=== PATIENT | male | born 1945 | race Caucasian/White ===

== ENCOUNTER 2017-09-15 19:00 | Inpatient (IN) | payer MEDICARE, OTHER ==
--- NOTE | 2017-09-15 20:11 | EDM.PDOC ---
ED HPI GENERAL MEDICAL PROBLEM - General Stated Complaint: SHORT OF BREATH Time Seen by Provider: 09/15/17 19:00 Source of Information: Reports: Patient History Limitations: Reports: Physical Impairment - History of Present Illness INITIAL COMMENTS - FREE TEXT/NARRATIVE: 72 y.o.w.m smoker, came to the ed by EMS due to SOB. Pt was seen in another hospital for a UTI. Pt is incontinent due to a "bladder issue" in the past. Pt is a poor historian. No N/V/D. No F/C BP 103/58 Pulse ox 94 on 3 liters O2 Pulse 76 Temp 36.6 Onset: Unknown/Unsure Onset Date: 09/14/17 Onset Time: 09:00 Duration: Day(s):, Getting Worse Location: Reports: Chest, Generalized Severity: Moderate Improves with: Reports: Rest Worsens with: Reports: Movement Context: Reports: Other (SOB, former smoker) Associated Symptoms: Reports: Shortness of Breath, Weakness - Related Data Allergies Allergy/AdvReac Type Severity Reaction Status Date / Time No Known Allergies Allergy Verified 09/15/17 20:12 Home Meds: Home Meds Tamsulosin [Flomax] 0.4 mg PO PCBRK #30 cap.er 11/25/13 [Rx] Multivitamin [Daily Vitamin] 1 tab PO DAILY 10/21/14 [History] Omeprazole 40 mg PO DAILY 10/21/14 [History] Ferrous Gluconate 324 mg PO DAILY 11/22/14 [History] Oxybutynin Chloride [Ditropan Xl] 15 mg PO DAILY 12/25/14 [History] Mirtazapine 45 mg PO BEDTIME 02/03/16 [History] Sertraline [Zoloft] 150 mg PO DAILY 30 Days tab 03/02/16 [Rx] Albuterol/Ipratropium [DuoNeb 3.0-0.5 MG/3 ML] 3 ml NEB Q4H PRN #120 neb [Rx] Acetaminophen 1,000 mg PO TID PRN 09/15/17 [History] Apixaban [Eliquis] 2.5 mg PO BID 09/15/17 [History] Aspirin 81 mg PO DAILY 09/15/17 [History] Dicyclomine [Bentyl] 10 mg PO QIDACANDBED 09/15/17 [History] Loratadine 10 mg PO DAILY 09/15/17 [History] Metoprolol Tartrate [Lopressor] 12.5 mg PO BID 09/15/17 [History] Mupirocin Oint [Bactroban Oint] 1 applic TOP TID 09/15/17 [History] Sennosides/Docusate Sodium [Sennosides-Docusate Sodium] 1 tab PO BID 09/15/17 [ History] Triamcinolone Acetonide [Triamcinolone Acetonide 0.1% Oint] 1 applic TOP DAILY 09/15/17 [History] atorvaSTATin [Lipitor] 20 mg PO BEDTIME 09/15/17 [History] Levothyroxine 175 mcg PO DAILY 09/16/17 [History] Sodium Chloride 1 gm PO TID 09/16/17 [History] Past Medical History HEENT History: Reports: Impaired Vision Other HEENT History: EYEGLASSES, wears full dentures Respiratory History: Reports: Pneumonia, Recurrent, Other (See Below) Other Respiratory History: long time smoker Genitourinary History: Reports: Urinary Incontinence Other Musculoskeletal History: RODS PLACED IN BACK. Psychiatric History: Reports: Depression Endocrine/Metabolic History: Reports: Hypothyroidism Oncologic (Cancer) History: Reports: Bladder Dermatologic History: Reports: Other (See Below) Other Dermatologic History: MULTIPLE OLD HEALED SCRATCH [place] - Past Surgical History Musculoskeletal Surgical History: Reports: Hip Replacement, Knee Replacement Social & Family History - Family History OBGYN: Reports: Endocrine/Metabolic: Reports: Diabetes, type II Other Dermatologic Family History: SISTER OF MVC Oncologic: Reports: Other (See Below) Other Oncologic Family History: BOTH MOTHER, FATHER AND BROTHER OF CA. PT UNSURE OF KIND - Tobacco Use Smoking Status *Q: Current Every Day Smoker Years of Tobacco use: 55 Packs/Tins Daily: 0.2 Used Tobacco, but Quit: No Month Tobacco Last Used: UNKNOWN Second Hand Smoke Exposure: No - Alcohol Use Days Per Week of Alcohol Use: 0 - Recreational Drug Use Recreational Drug Use: No Drug Use in Last 12 Months: No ED ROS GENERAL - Review of Systems Review Of Systems: See Below Constitutional: Reports: Weakness, Decreased Appetite, Weight Loss HEENT: Reports: No Symptoms Respiratory: Reports: No Symptoms Cardiovascular: Reports: Dyspnea on Exertion, Lightheadedness Endocrine: Reports: No Symptoms GI/Abdominal: Reports: No Symptoms : Reports: No Symptoms Musculoskeletal: Reports: No Symptoms Skin: Reports: Cyanosis Neurological: Reports: No Symptoms, Difficulty Walking (because of weakness), Weakness Psychiatric: Reports: No Symptoms Hematologic/Lymphatic: Reports: No Symptoms Immunologic: Reports: No Symptoms ED EXAM, GENERAL - Physical Exam Exam: See Below Exam Limited By: Physical Impairment (weak) General Appearance: Alert, Moderate Distress, Cachetic Eye Exam: Bilateral Eye: Normal Inspection Ears: Normal External Exam Ear Exam: Bilateral Ear: Auricle Normal Nose: Normal Inspection, Normal Mucosa, No Blood Throat/Mouth: Perioral Cyanosis Head: Atraumatic, Normocephalic Neck: Normal Inspection, Supple, Non-Tender, Full Range of Motion Respiratory/Chest: Respiratory Distress, Decreased Breath Sounds, Crackles ( left lung) Cardiovascular: Normal Peripheral Pulses, Regular Rate, Rhythm, No Edema Peripheral Pulses: 1+: Femoral (L), Femoral (R) GI/Abdominal: Normal Bowel Sounds, Soft, Non-Tender, No Organomegaly (Male) Exam: Deferred Rectal (Males) Exam: Deferred Back Exam: Normal Inspection, Full Range of Motion Extremities: Normal Range of Motion, Other (chronic lymphedema r leg) Neurological: Alert, Oriented, CN II-XII Intact, Normal Cognition, Other (too week to ambulate.) Psychiatric: Normal Affect, Normal Mood Skin Exam: Warm, Dry, Intact, Cyanosis Lymphatic: No Adenopathy EKG INTERPRETATION EKG Date: 09/15/17 Time: 19:20 Rhythm: NSR Rate (Beats/Min): 66 [place]: Normal P-Wave: Present QRS: Normal ST-T: Normal QT: Normal Comparison: NA - No Prior EKG Course - Vital Signs Text/Narrative:: 72 y.o.w.m smoker, came to the ed by EMS due to SOB. Pt was seen in another hospital for a UTI. Pt is incontinent due to a "bladder issue" in the past. Pt is a poor historian. No N/V/D. No F/C BP 103/58 Pulse ox 94 on 3 liters O2 Pulse 76 Temp 36.6 PE: cachectic 72 y.o.w.m with cyanotic lips, distant breath sounds. Imaging: CXR: COPD, no infiltrate, no CHF as per RAD Labs: BNP 2319 WBC 6.6 HGB 9.6 Inr 1.22 (not on coumadine) VBG: pH 7.047 pCO2 39 pO2 23 Biocarb 25 Impression: COPD exacerbation, elevated BNP, UTI Tx: Duoneb, Solumedrol, O2 by NC, Abx not given because the UA returned later. Reexam: improved Consultation: : Accepted for admission to med/surg Plan: Admit to M/S Last Recorded V/S: Last Vital Signs Temp 36.6 C 09/16/17 12:00 Pulse 87 09/16/17 16:27 Resp 20 09/16/17 12:00 BP 124/55 L 09/16/17 12:00 Pulse Ox 96 09/16/17 16:27 - Orders/Labs/Meds Orders: Active Orders 24 hr Category Date Time Status Chest 1V Frontal [CR] Stat Exams 09/15/17 19:18 Taken EKG 12 Lead [EK] Routine Ther 09/15/17 19:19 Ordered Medication Orders Acetaminophen (Tylenol Extra Strength) 1,000 mg PO QID PRN PRN Reason: Pain Albuterol/Ipratropium (Duoneb 3.0-0.5 Mg/3 Ml) 3 ml NEB QIDRT [facility] Last Admin: 09/16/17 16:22 Dose: 3 ml Admin: 09/16/17 10:39 Dose: 3 ml Admin: 09/16/17 09:56 Dose: Apixaban (Eliquis) 2.5 mg PO BID [facility] Last Admin: 09/16/17 10:53 Dose: 2.5 mg Aspirin (Aspirin) 81 mg PO DAILY [facility] Last Admin: 09/16/17 09:52 Dose: 81 mg Atorvastatin Calcium (Lipitor) 20 mg PO BEDTIME [facility] Levofloxacin/Dextrose 500 mg/ (Premix) 100 mls @ 100 mls/hr IV Q24H [facility] Last Admin: 09/16/17 09:33 Dose: 100 mls/hr Levothyroxine Sodium (Levothyroxine) 175 mcg PO DAILY@0600 [facility] Loratadine (Claritin) 10 mg PO DAILY [facility] Last Admin: 09/16/17 09:55 Dose: 10 mg Megestrol Acetate (Megace 40 Mg/Ml Susp) 400 mg PO DAILY [facility] Last Admin: 09/16/17 11:01 Dose: 400 mg Methylprednisolone Sodium Succinate (Solu-Medrol) 125 mg IVPUSH Q8H [facility] Last Admin: 09/16/17 16:24 Dose: 125 mg Admin: 09/16/17 09:34 Dose: 125 mg Mirtazapine (Remeron) 45 mg PO BEDTIME [facility] Multivitamins/Minerals/Vitamin C (Childrens Chewable Vitamin) 1 tab PO DAILY [facility] Last Admin: 09/16/17 10:51 Dose: 1 tab Oxybutynin Chloride (Oxybutynin Er) 15 mg PO DAILY [facility] Last Admin: 09/16/17 09:53 Dose: 15 mg Pantoprazole Sodium (Protonix) 40 mg PO DAILY@0600 [facility] Last Admin: 09/16/17 09:54 Dose: 40 mg Senna/Docusate Sodium (Senna Plus) 1 tab PO BID [facility] Last Admin: 09/16/17 10:52 Dose: 1 tab Sertraline HCl (Zoloft) 150 mg PO DAILY [facility] Last Admin: 09/16/17 09:55 Dose: 150 mg Sodium Chloride (Saline Flush) 10 ml FLUSH ASDIRECTED PRN PRN Reason: Keep Vein Open Last Admin: 09/16/17 17:05 Dose: 10 ml Tamsulosin HCl (Flomax) 0.4 mg PO PCBRK [facility] Last Admin: 09/16/17 09:52 Dose: 0.4 mg Labs: Laboratory Tests 09/15/17 09/15/17 09/15/17 Range/Units 19:30 19:30 19:30 WBC 6.6 (4.5-12.0) X10-3/uL RBC 3.33 L (4.30-5.75) x10(6)uL Hgb 9.6 L (11.5-15.5) g/dL Hct 28.4 L (30.0-51.3) % MCV 85.4 (80-96) fL MCH 28.8 (27.7-33.6) pg MCHC 33.7 (32.2-35.4) g/dL RDW 13.6 (11.5-15.5) % Plt Count 245 (125-369) X10(3)uL MPV 7.8 (7.4-10.4) fL Neut % (Auto) 79.4 (46-82) % Lymph % (Auto) 5.8 L (13-37) % [place] % (Auto) 7.0 (4-12) % Eos % (Auto) 7 H (1.0-5.0) % Baso % (Auto) 0 (0-2) % Neut # (Auto) 5.2 (1.6-8.3) # Lymph # (Auto) 0.4 L (0.6-5.0) # [place] # (Auto) 0.5 (0.0-1.3) # Eos # (Auto) 0.5 (0.0-0.8) # Baso # (Auto) 0.0 (0.0-0.2) # PT 12.3 H (8.7-11.1) INR 1.22 H (0.89-1.13) VBG pH (7.32-7.42) VBG pCO2 VBG pO2 VBG HCO3 mmol/L VBG O2 Saturation VBG Base Excess O2 Delivery Device Sodium 134 L (135-145) mmol/L Potassium 3.9 (3.5-5.3) mmol/L Chloride 103 D (100-110) mmol/L Carbon Dioxide 25 (23-29) mmol/L BUN 15 (8-23) mg/dL Creatinine 1.0 (0.6-1.3) mg/dL Est Cr Clr Drug Dosing TNP Estimated GFR (MDRD) > 60 (>60) BUN/Creatinine Ratio 15.0 (9-20) Glucose 91 (80-116) mg/dL Lactic Acid (0.5-2.2) mmol/L Calcium 8.2 L (8.6-10.2) mg/dL Creatine Kinase (60-160) IU/L Troponin I (0.02-0.06) NG/ML NT-Pro-B Natriuret Pep (5-125) pg/mL 09/15/17 09/15/17 09/15/17 Range/Units 19:30 19:30 19:30 WBC (4.5-12.0) X10-3/uL RBC (4.30-5.75) x10(6)uL Hgb (11.5-15.5) g/dL Hct (30.0-51.3) % MCV (80-96) fL MCH (27.7-33.6) pg MCHC (32.2-35.4) g/dL RDW (11.5-15.5) % Plt Count (125-369) X10(3)uL MPV (7.4-10.4) fL Neut % (Auto) (46-82) % Lymph % (Auto) (13-37) % [place] % (Auto) (4-12) % Eos % (Auto) (1.0-5.0) % Baso % (Auto) (0-2) % Neut # (Auto) (1.6-8.3) # Lymph # (Auto) (0.6-5.0) # [place] # (Auto) (0.0-1.3) # Eos # (Auto) (0.0-0.8) # Baso # (Auto) (0.0-0.2) # PT (8.7-11.1) INR (0.89-1.13) VBG pH (7.32-7.42) VBG pCO2 VBG pO2 VBG HCO3 mmol/L VBG O2 Saturation VBG Base Excess O2 Delivery Device Sodium (135-145) mmol/L Potassium (3.5-5.3) mmol/L Chloride (100-110) mmol/L Carbon Dioxide (23-29) mmol/L BUN (8-23) mg/dL Creatinine (0.6-1.3) mg/dL Est Cr Clr Drug Dosing Estimated GFR (MDRD) (>60) BUN/Creatinine Ratio (9-20) Glucose (80-116) mg/dL Lactic Acid (0.5-2.2) mmol/L Calcium (8.6-10.2) mg/dL Creatine Kinase 45 L (60-160) IU/L Troponin I 0.02 (0.02-0.06) NG/ML NT-Pro-B Natriuret Pep 2318 H (5-125) pg/mL 09/15/17 09/15/17 Range/Units 20:15 20:15 WBC (4.5-12.0) X10-3/uL RBC (4.30-5.75) x10(6)uL Hgb (11.5-15.5) g/dL Hct (30.0-51.3) % MCV (80-96) fL MCH (27.7-33.6) pg MCHC (32.2-35.4) g/dL RDW (11.5-15.5) % Plt Count (125-369) X10(3)uL MPV (7.4-10.4) fL Neut % (Auto) (46-82) % Lymph % (Auto) (13-37) % [place] % (Auto) (4-12) % Eos % (Auto) (1.0-5.0) % Baso % (Auto) (0-2) % Neut # (Auto) (1.6-8.3) # Lymph # (Auto) (0.6-5.0) # [place] # (Auto) (0.0-1.3) # Eos # (Auto) (0.0-0.8) # Baso # (Auto) (0.0-0.2) # PT (8.7-11.1) INR (0.89-1.13) VBG pH 7.407 (7.32-7.42) VBG pCO2 39.2 VBG pO2 23 VBG HCO3 25 mmol/L VBG O2 Saturation 40 VBG Base Excess 0.0 O2 Delivery Device Room air Sodium (135-145) mmol/L Potassium (3.5-5.3) mmol/L Chloride (100-110) mmol/L Carbon Dioxide (23-29) mmol/L BUN (8-23) mg/dL Creatinine (0.6-1.3) mg/dL Est Cr Clr Drug Dosing Estimated GFR (MDRD) (>60) BUN/Creatinine Ratio (9-20) Glucose (80-116) mg/dL Lactic Acid 0.6 (0.5-2.2) mmol/L Calcium (8.6-10.2) mg/dL Creatine Kinase (60-160) IU/L Troponin I (0.02-0.06) NG/ML NT-Pro-B Natriuret Pep (5-125) pg/mL Meds: Medications Generic Name Dose Route Start Last Admin Trade Name Freq PRN Reason Stop Dose Admin Acetaminophen 1,000 mg 09/16/17 09:08 Tylenol Extra Strength PO QID PRN Pain Albuterol/Ipratropium 3 ml 09/16/17 08:15 09/16/17 16:22 Duoneb 3.0-0.5 Mg/3 Ml NEB 3 ml QIDRT [facility] Administration Apixaban 2.5 mg 09/16/17 10:30 09/16/17 10:53 Eliquis PO 2.5 mg BID [facility] Administration Aspirin 81 mg 09/16/17 09:00 09/16/17 09:52 Aspirin PO 81 mg DAILY [facility] Administration Atorvastatin Calcium 20 mg 09/16/17 21:00 Lipitor PO BEDTIME [facility] Levofloxacin/Dextrose 500 mg/ 100 mls @ 100 mls/hr 09/16/17 09:00 09/16/17 09 :33 Premix IV 100 mls/hr Q24H [facility] Administration Levothyroxine Sodium 175 mcg 09/17/17 06:00 Levothyroxine PO DAILY@0600 [facility] Loratadine 10 mg 09/16/17 09:30 09/16/17 09:55 Claritin PO 10 mg DAILY [facility] Administration Megestrol Acetate 400 mg 09/16/17 10:00 09/16/17 11:01 Megace 40 Mg/Ml Susp PO 400 mg DAILY [facility] Administration Methylprednisolone Sodium Succinate 125 mg 09/16/17 08:30 09/16/17 16:24 Solu-Medrol IVPUSH 125 mg Q8H [facility] Administration Mirtazapine 45 mg 09/16/17 21:00 Remeron PO BEDTIME [facility] Multivitamins/Minerals/Vitamin C 1 tab 09/16/17 09:00 09/16/17 10:51 Childrens Chewable Vitamin PO 1 tab DAILY [facility] Administration Oxybutynin Chloride 15 mg 09/16/17 09:00 09/16/17 09:53 Oxybutynin Er PO 15 mg DAILY [facility] Administration Pantoprazole Sodium 40 mg 09/16/17 09:00 09/16/17 09:54 Protonix PO 40 mg DAILY@0600 [facility] Administration Senna/Docusate Sodium 1 tab 09/16/17 09:00 09/16/17 10:52 Senna Plus PO 1 tab BID [facility] Administration Sertraline HCl 150 mg 09/16/17 09:00 09/16/17 09:55 Zoloft PO 150 mg DAILY [facility] Administration Sodium Chloride 10 ml 09/15/17 21:24 09/16/17 17:05 Saline Flush FLUSH 10 ml ASDIRECTED PRN Administration Keep Vein Open Tamsulosin HCl 0.4 mg 09/16/17 09:00 09/16/17 09:52 Flomax PO 0.4 mg PCBRK [facility] Administration Discontinued Medications Generic Name Dose Route Start Last Admin Trade Name Osmel PRN Reason Stop Dose Admin Albuterol 2.5 mg 09/15/17 20:50 09/16/17 00:19 Proventil Neb Soln NEB 2.5 mg Q2H PRN Administration Shortness Of Breath/wheezing Albuterol/Ipratropium 3 ml 09/15/17 20:39 09/15/17 20:53 Duoneb 3.0-0.5 Mg/3 Ml NEB 09/15/17 20:40 3 ml ONETIME ONE Administration Enoxaparin Sodium 30 mg 09/16/17 09:00 09/16/17 11:05 Lovenox SUBCUT Not Given DAILY [facility] Levothyroxine Sodium 200 mcg 09/16/17 09:00 09/16/17 09:53 Levothyroxine PO 200 mcg DAILY@0600 [facility] Administration Methylprednisolone Sodium Succinate 125 mg 09/15/17 20:37 09/15/17 20:53 Solu-Medrol IVPUSH 09/15/17 20:38 125 mg ONETIME ONE Administration Departure - Departure Time of Disposition: 21:00 Disposition: Admitted As Inpatient 64 Condition: Fair Clinical Impression: COPD exacerbation - Discharge Information - My Orders Last 24 Hours: My Active Orders 09/15/17 19:18 Chest 1V Frontal [CR] Stat 09/15/17 19:19 EKG 12 Lead [EK] Routine - Assessment/Plan Last 24 Hours: My Active Orders 09/15/17 19:18 Chest 1V Frontal [CR] Stat 09/15/17 19:19 EKG 12 Lead [EK] Routine
[2017-09-15] MEDS ORDERED: methylPREDNISolone Sodium Succinate 125 MG/2 ML SDV IVPUSH ONE (20:37)
[2017-09-15] MEDS ORDERED: Albuterol/Ipratropium 3.0-0.5 MG/3 ML Neb Soln NEB ONE (20:39)
[2017-09-15] MEDS ORDERED: Albuterol 0.083% 2.5 MG/3 ML Neb Soln NEB PRN (20:50)
--- NOTE | 2017-09-16 08:06 | PCM.HP ---
H&P History of Present Illness - General Date of Service: 09/16/17 Admit Problem/Dx: Admission Diagnosis/Problem Admission Diagnosis/Problem COPD, Moderate chronic obstructive pulmonary disease Source of Information: Patient, EMS Notes Reviewed, Old Records History Limitations: Reports: No Limitations - History of Present Illness Initial Comments - Free Text/Narative: 72-year-old male that came in because of shortness of breath. He's from an assisted living, and complaints of shortness of breath progressively of unspecified period of time. He denies cough or chest pain. Is known to have COPD but previously not on oxygen. He's lost weight significantly the last few months, after diagnosis of prostate and bladder cancer. He has a history of hypothyroidism has been stable, and the remote history of A. fib that was transient in 2016 - Related Data Allergies/Adverse Reactions: Allergies Allergy/AdvReac Type Severity Reaction Status Date / Time No Known Allergies Allergy Verified 09/15/17 20:12 Home Medications: Home Meds Levothyroxine 200 mcg PO DAILY 11/19/13 [History] Tamsulosin [Flomax] 0.4 mg PO PCBRK #30 cap.er 11/25/13 [Rx] Multivitamin [Daily Vitamin] 1 tab PO DAILY 10/21/14 [History] Omeprazole 40 mg PO DAILY 10/21/14 [History] Ferrous Gluconate 324 mg PO DAILY 11/22/14 [History] Oxybutynin Chloride [Ditropan Xl] 15 mg PO DAILY 12/25/14 [History] Mirtazapine 45 mg PO BEDTIME 02/03/16 [History] Sertraline [Zoloft] 150 mg PO DAILY 30 Days tab 03/02/16 [Rx] Albuterol/Ipratropium [DuoNeb 3.0-0.5 MG/3 ML] 3 ml NEB Q4H PRN #120 neb [Rx] Acetaminophen 1,000 mg PO QID PRN 09/15/17 [History] Apixaban [Eliquis] 5 mg PO DAILY 09/15/17 [History] Aspirin 81 mg PO DAILY 09/15/17 [History] Dicyclomine [Bentyl] 10 mg PO QIDACANDBED 09/15/17 [History] Loratadine 10 mg PO DAILY 09/15/17 [History] Metoprolol Tartrate [Lopressor] 12.5 mg PO DAILY 09/15/17 [History] Mupirocin Oint [Bactroban Oint] 1 applic TOP TID 09/15/17 [History] Sennosides/Docusate Sodium [Sennosides-Docusate Sodium] 2 tab PO DAILY 09/15/17 [History] Triamcinolone Acetonide [Triamcinolone Acetonide 0.1% Oint] 1 applic TOP DAILY 09/15/17 [History] atorvaSTATin [Lipitor] 20 mg PO BEDTIME 09/15/17 [History] Past Medical History HEENT History: Reports: Impaired Vision Other HEENT History: EYEGLASSES, wears full dentures Cardiovascular History: Reports: Afib, CAD Respiratory History: Reports: COPD, Pneumonia, Recurrent, Other (See Below) Other Respiratory History: long time smoker Genitourinary History: Reports: Prostate Disorder, Urinary Incontinence, Other ( See Below) (bladder cancer) Other Musculoskeletal History: RODS PLACED IN BACK. Psychiatric History: Reports: Depression Endocrine/Metabolic History: Reports: Hypothyroidism Hematologic History: Reports: Blood Transfusion(s) Oncologic (Cancer) History: Reports: Bladder, Prostate Dermatologic History: Reports: Other (See Below) Other Dermatologic History: MULTIPLE OLD HEALED SCRATCH [place], lesions on lower back area - Infectious Disease History Infectious Disease History: Reports: None - Past Surgical History GI Surgical History: Reports: Appendectomy Male Surgical History: Reports: Other (See Below) Other Male Surgeries/Procedures: hx bladder ca, radiation made him dribble all the time Musculoskeletal Surgical History: Reports: Hip Replacement, Knee Replacement, Other (See Below) Other Musculoskeletal Surgeries/Procedures:: surgically fused R foot Social & Family History - Family History OBGYN: Reports: Endocrine/Metabolic: Reports: Diabetes, type II Other Dermatologic Family History: SISTER OF MVC Oncologic: Reports: Other (See Below) Other Oncologic Family History: BOTH MOTHER, FATHER AND BROTHER OF CA. PT UNSURE OF KIND - Tobacco Use Smoking Status *Q: Current Every Day Smoker Years of Tobacco use: 55 Packs/Tins Daily: 0.5 Used Tobacco, but Quit: No Month Tobacco Last Used: UNKNOWN Second Hand Smoke Exposure: Yes - Caffeine Use Caffeine Use: Reports: Coffee Caffeine Use Comment: 5-6 cups a day - Alcohol Use Days Per Week of Alcohol Use: 0 - Recreational Drug Use Recreational Drug Use: No Drug Use in Last 12 Months: No H&P Review of Systems - Review of Systems: Review Of Systems: ROS reveals no pertinent complaints other than HPI. Exam - Exam Exam: See Below - Vital Signs Vital Signs: Last Vital Signs Temp 97.8 F 09/16/17 07:54 Pulse 84 09/16/17 07:54 Resp 20 09/16/17 07:54 BP 111/56 L 09/16/17 07:54 Pulse Ox 96 09/16/17 07:54 Weight: 48.807 kg - Exam Quality Assessment: Supplemental Oxygen, Skin Breakdown General: Alert, Oriented, 4 HEENT: PERRLA, Hearing Intact, Mucosa Moist & [place], Nares Patent, Normal Nasal Septum, Posterior Pharynx Clear, Conjunctiva Clear, EOMI, EACs Clear, TMs Clear Neck: Supple, Trachea Midline, 2 Lungs: Clear to Auscultation, Decreased Breath Sounds Cardiovascular: Regular Rate, Regular Rhythm GI/Abdominal Exam: Normal Bowel Sounds, Soft, Non-Tender, No Organomegaly, No Distention, No Abnormal Bruit, No Mass, Pelvis Stable (Male) Exam: No Hernia, Normal Inspection, Normal Prostate, Circumcised Rectal (Males) Exam: Normal Exam, Normal Rectal Tone, Prostate Normal Back Exam: Other (skin ulcers,see pictures) Extremities: Normal Inspection, Normal Range of Motion, Non-Tender, No Pedal Edema, Normal Capillary Refill Skin: Warm, Wound Neuro Extensive - Mental Status: Alert, Oriented x3, Normal Mood/Affect, Normal Cognition Neuro Extensive - Motor, Sensory, Reflexes: CN II-XII Intact, Normal Gait, Normal Reflexes Psychiatric: Alert, Normal Affect, Depressed. No: Normal Mood - Patient Data Lab Results Last 24 hrs: Laboratory Results - last 24 hr 09/16/17 Range/Units 03:46 Urine Color Yellow (YELLOW) Urine Appearance Slightly cloudy (CLEAR) Urine pH 6.0 (5.0-6.5) Ur Specific [place] 1.015 (1.010-1.025) Urine Protein Negative (NEGATIVE) mg/dL Urine Glucose (UA) Normal (NEGATIVE) mg/dL Urine Ketones 15 H (NEGATIVE) mg/dL Urine Occult Blood Negative (NEGATIVE) Urine Nitrite Negative (NEGATIVE) Urine Bilirubin Small H (NEGATIVE) Urine Urobilinogen Normal (NEGATIVE) mg/dL Ur Leukocyte Esterase Moderate H (NEGATIVE) Urine RBC 0-5 (0) Urine WBC 5-10 (0) Ur Squamous Epith Cells Occasional (NS,R,O) Urine Bacteria Few H (NS) Result Diagrams: 09/15/17 19:30 09/15/17 19:30 EKG INTERPRETATION Rhythm: NSR *Q Meaningful Use (ADM) - VTE *Q VTE Criteria *Q: - Stroke *Q Stroke Criteria *Q: - AMI *Q AMI Criteria *Q: - Problem List (1) COPD (chronic obstructive pulmonary disease) SNOMED Code(s): 20762784 ICD Code: J44.9 - CHRONIC OBSTRUCTIVE PULMONARY DISEASE, UNSPECIFIED Status : Acute Current Visit: No Problem Details: Probable COPD may be contributing to current sxs. There was little change with DuoNeb. Qualifiers: COPD type: chronic bronchitis (2) Cachexia SNOMED Code(s): 439339347 ICD Code: R64 - [place] Status: Acute Current Visit: Yes (3) Palliative care status SNOMED Code(s): 366817128 ICD Code: Z51.5 - ENCOUNTER FOR PALLIATIVE CARE Status: Acute Current Visit: Yes (4) Abnormal weight loss SNOMED Code(s): 140329006 ICD Code: R63.4 - ABNORMAL WEIGHT LOSS Status: Acute Current Visit: No (5) Cancer of bladder SNOMED Code(s): 717846005 ICD Code: C67.9 - MALIGNANT NEOPLASM OF BLADDER, UNSPECIFIED Status: Acute Current Visit: No Qualifiers: Bladder location: unspecified site Qualified Code(s): C67.9 - Malignant neoplasm of bladder, unspecified (6) Cancer of prostate SNOMED Code(s): 496636302 ICD Code: C61 - MALIGNANT NEOPLASM OF PROSTATE Status: Acute Current Visit: No (7) Hypothyroid SNOMED Code(s): 66150512 ICD Code: E03.9 - HYPOTHYROIDISM, UNSPECIFIED Status: Acute Current Visit : No Qualifiers: Hypothyroidism type: unspecified Qualified Code(s): E03.9 - Hypothyroidism , unspecified (8) Depression SNOMED Code(s): 48746739 ICD Code: F32.9 - MAJOR DEPRESSIVE DISORDER, SINGLE EPISODE, UNSPECIFIED Status: Acute Current Visit: Yes (9) Decubital ulcer SNOMED Code(s): 205857173 ICD Code: L89.90 - PRESSURE ULCER OF UNSPECIFIED SITE, UNSPECIFIED STAGE Status: Acute Current Visit: Yes Qualifiers: Pressure ulcer location: upper back Pressure ulcer stage: stage 1 (10) Hypothyroid SNOMED Code(s): 37754324 ICD Code: E03.9 - HYPOTHYROIDISM, UNSPECIFIED Status: Chronic Current Visit: Yes Qualifiers: Hypothyroidism type: unspecified Qualified Code(s): E03.9 - Hypothyroidism , unspecified (11) CAD (coronary artery disease) SNOMED Code(s): 88852875 ICD Code: I25.10 - ATHSCL HEART DISEASE OF [place] CORONARY ARTERY W/O ANG PCTRS Status: Chronic Current Visit: Yes Qualifiers: Coronary Disease-Associated Artery/Lesion type: [place] artery (12) Afib SNOMED Code(s): 48493894 ICD Code: I48.91 - UNSPECIFIED ATRIAL FIBRILLATION Status: Chronic Current Visit: Yes Qualifiers: Atrial fibrillation type: paroxysmal Qualified Code(s): I48.0 - Paroxysmal atrial fibrillation Problem List Initiated/Reviewed/Updated: Yes Orders Last 24hrs: Active Orders 24 hr Category Date Time Status Oxygen Therapy Adult [Oxygen Therapy, ED] [RC] Care 09/15/17 20:50 Active ASDIRECTED Sodium Chloride 0.9% [Saline Flush] Med 09/15/17 21:24 Active 10 ml FLUSH ASDIRECTED PRN Peripheral IV Insertion Adult [OM.PC] Routine Oth 09/15/17 20:50 Ordered Medication Orders Albuterol (Proventil Neb Soln) 2.5 mg NEB Q2H PRN PRN Reason: Shortness Of Breath/wheezing Last Admin: 09/16/17 00:19 Dose: 2.5 mg Enoxaparin Sodium (Lovenox) 30 mg SUBCUT DAILY ADILIA Sodium Chloride (Saline Flush) 10 ml FLUSH ASDIRECTED PRN PRN Reason: Keep Vein Open Assessment/Plan Comment:: I independently reviewed the image his chest x-ray. I did not feel it fits the criteria for CHF however there is some cardiomegaly which could also be positional. With the gentleman known to have COPD, I have elected to treat him primarily for COPD exacerbation. I'll give him IV Solu-Medrol, DuoNeb when necessary, and supplemented oxygen as needed. I'll repeat some blood work in the morning. 40s no appetite try some Megace and a multivitamin. A nutrition consultation is also appropriate. We will resume his home medications including anticoagulation medicine, antidepressant, but hold the beta dez because of the COPD. I've elected to also treat him with Levaquin for COPD exacerbation even without evidence of pneumonia. I will address his pressure ulcers with DuoNeb and recommended frequent position changes and an appropriate mattress.
[2017-09-16] MEDS ORDERED: Enoxaparin 30 MG/0.3 ML Syringe SUBCUT SCH (09:00)
[2017-09-16] MEDS ORDERED: Levofloxacin/Dextrose 5%-Water 500 MG in Premix Bag 1 BAG IV SCH (09:00)
[2017-09-16] MEDS: methylPREDNISolone Sodium Succinate 125 MG/2 ML SDV IVPUSH SCH ×2 (09:34→16:24)
[2017-09-16] MEDS: Aspirin 81 MG Tab.Chew PO SCH (09:52)
[2017-09-16] MEDS: Tamsulosin 0.4 MG Cap.ER PO SCH (09:52)
[2017-09-16] MEDS: Oxybutynin 5 MG Tab.ER PO SCH (09:53)
[2017-09-16] MEDS: Pantoprazole 40 MG Tab.CR PO SCH (09:54)
[2017-09-16] MEDS: Sertraline 50 MG Tab PO SCH (09:55)
[2017-09-16] MEDS: Loratadine 10 MG Tab PO SCH (09:55)
[2017-09-16] MEDS: Albuterol/Ipratropium 3.0-0.5 MG/3 ML Neb Soln NEB SCH ×4 (09:56→20:17)
[2017-09-16] MEDS ORDERED: Apixaban 2.5 MG Tab PO SCH (10:00)
[2017-09-16] MEDS: Multivitamin, Childrens Tab.Chew PO SCH (10:51)
[2017-09-16] MEDS: Apixaban 5 MG Tab PO SCH ×2 (10:53→20:20)
[2017-09-16] MEDS: Megestrol Susp 40 MG/ML ML (240 ML Bottle) PO SCH (11:01)
[2017-09-16] MEDS: Sodium Chloride 0.9% 10 ML Syringe FLUSH PRN (17:05)
[2017-09-16] MEDS: Acetaminophen 500 MG Tab PO PRN (19:20)
[2017-09-16] MEDS ORDERED: Albuterol/Ipratropium 3.0-0.5 MG/3 ML Neb Soln NEB PRN (19:38)
[2017-09-16] MEDS: atorvaSTATin 20 MG Tab PO SCH (20:19)
[2017-09-16] MEDS: Mirtazapine 15 MG Tab PO SCH (20:21)
[2017-09-17] MEDS: Albuterol/Ipratropium 3.0-0.5 MG/3 ML Neb Soln NEB SCH ×7 (00:30→23:31)
[2017-09-17] MEDS: methylPREDNISolone Sodium Succinate 125 MG/2 ML SDV IVPUSH SCH ×4 (01:21→23:31)
[2017-09-17] MEDS: Sodium Chloride 0.9% 10 ML Syringe FLUSH PRN ×3 (01:23→23:34)
[2017-09-17] MEDS: Pantoprazole 40 MG Tab.CR PO SCH (05:02)
[2017-09-17] MEDS: Aspirin 81 MG Tab.Chew PO SCH (08:12)
[2017-09-17] MEDS: Multivitamin, Childrens Tab.Chew PO SCH (08:12)
[2017-09-17] MEDS: Apixaban 5 MG Tab PO SCH ×2 (08:13→20:09)
[2017-09-17] MEDS: Tamsulosin 0.4 MG Cap.ER PO SCH (08:13)
[2017-09-17] MEDS: Loratadine 10 MG Tab PO SCH (08:13)
[2017-09-17] MEDS: Megestrol Susp 40 MG/ML ML (240 ML Bottle) PO SCH (08:14)
[2017-09-17] MEDS: Oxybutynin 5 MG Tab.ER PO SCH (08:15)
[2017-09-17] MEDS: Sertraline 50 MG Tab PO SCH (08:16)
--- NOTE | 2017-09-17 08:24 | PCM.PN ---
- General Info Date of Service: 09/17/17 Admission Dx/Problem (Free Text): Admission Diagnosis/Problem Admission Diagnosis/Problem COPD, Moderate chronic obstructive pulmonary disease Functional Status: Reports: Pain Controlled - Review of Systems General: Denies: Fever HEENT: Reports: No Symptoms Pulmonary: Reports: Shortness of Breath, Cough Cardiovascular: Reports: No Symptoms Gastrointestinal: Reports: No Symptoms - Patient Data Vitals - Most Recent: Last Vital Signs Temp 97.4 F 09/17/17 04:00 Pulse 88 09/17/17 07:42 Resp 20 09/17/17 04:00 BP 129/72 09/17/17 04:00 Pulse Ox 92 L 09/17/17 07:42 Weight - Most Recent: 49.215 kg Lab Results Last 24 Hours: Laboratory Results - last 24 hr 09/17/17 09/17/17 Range/Units 06:10 06:10 Sodium 136 (135-145) mmol/L Potassium 3.9 (3.5-5.3) mmol/L Chloride 103 (100-110) mmol/L Carbon Dioxide 24 (23-29) mmol/L BUN 28 H D (8-23) mg/dL Creatinine 1.2 (0.6-1.3) mg/dL Est Cr Clr Drug Dosing 37.59 mL/min Estimated GFR (MDRD) 59 L (>60) BUN/Creatinine Ratio 23.3 H (9-20) Glucose 172 H D (80-116) mg/dL Calcium 8.7 (8.6-10.2) mg/dL NT-Pro-B Natriuret Pep 1683 H (5-125) pg/mL TSH, Ultra Sensitive < 0.10 L (0.4-5.5) nlU/mL Med Orders - Current: Current Medications Acetaminophen (Tylenol Extra Strength) 1,000 mg PO QID PRN PRN Reason: Pain Last Admin: 09/16/17 19:20 Dose: 1,000 mg Albuterol/Ipratropium (Duoneb 3.0-0.5 Mg/3 Ml) 3 ml NEB Q4H ADILIA Last Admin: 09/17/17 07:23 Dose: 3 ml Albuterol/Ipratropium (Duoneb 3.0-0.5 Mg/3 Ml) 3 ml NEB Q2H PRN PRN Reason: Shortness of Breath Apixaban (Eliquis) 2.5 mg PO BID [facility] Last Admin: 09/17/17 08:13 Dose: 2.5 mg Aspirin (Aspirin) 81 mg PO DAILY [facility] Last Admin: 09/17/17 08:12 Dose: 81 mg Atorvastatin Calcium (Lipitor) 20 mg PO BEDTIME [facility] Last Admin: 09/16/17 20:19 Dose: 20 mg Loratadine (Claritin) 10 mg PO DAILY [facility] Last Admin: 09/17/17 08:13 Dose: 10 mg Megestrol Acetate (Megace 40 Mg/Ml Susp) 400 mg PO DAILY [facility] Last Admin: 09/17/17 08:14 Dose: 400 mg Methylprednisolone Sodium Succinate (Solu-Medrol) 125 mg IVPUSH Q8H [facility] Last Admin: 09/17/17 08:11 Dose: 125 mg Mirtazapine (Remeron) 45 mg PO BEDTIME [facility] Last Admin: 09/16/17 20:21 Dose: 45 mg Multivitamins/Minerals/Vitamin C (Childrens Chewable Vitamin) 1 tab PO DAILY [facility] Last Admin: 09/17/17 08:12 Dose: 1 tab Oxybutynin Chloride (Oxybutynin Er) 15 mg PO DAILY [facility] Last Admin: 09/17/17 08:15 Dose: 15 mg Pantoprazole Sodium (Protonix) 40 mg PO DAILY@0600 [facility] Last Admin: 09/17/17 05:02 Dose: 40 mg Senna/Docusate Sodium (Senna Plus) 1 tab PO BID [facility] Last Admin: 09/17/17 08:15 Dose: 1 tab Sertraline HCl (Zoloft) 150 mg PO DAILY [facility] Last Admin: 09/17/17 08:16 Dose: 150 mg Sodium Chloride (Saline Flush) 10 ml FLUSH ASDIRECTED PRN PRN Reason: Keep Vein Open Last Admin: 09/17/17 01:23 Dose: 10 ml Tamsulosin HCl (Flomax) 0.4 mg PO PCBRK [facility] Last Admin: 09/17/17 08:13 Dose: 0.4 mg Discontinued Medications Albuterol (Proventil Neb Soln) 2.5 mg NEB Q2H PRN PRN Reason: Shortness Of Breath/wheezing Last Admin: 09/16/17 00:19 Dose: 2.5 mg Albuterol/Ipratropium (Duoneb 3.0-0.5 Mg/3 Ml) 3 ml NEB ONETIME ONE Stop: 09/15/17 20:40 Last Admin: 09/15/17 20:53 Dose: 3 ml Albuterol/Ipratropium (Duoneb 3.0-0.5 Mg/3 Ml) 3 ml NEB QIDRT [facility] Last Admin: 09/16/17 16:22 Dose: 3 ml Enoxaparin Sodium (Lovenox) 30 mg SUBCUT DAILY [facility] Last Admin: 09/16/17 11:05 Dose: Not Given Levofloxacin/Dextrose 500 mg/ (Premix) 100 mls @ 100 mls/hr IV Q24H [facility] Last Admin: 09/16/17 09:33 Dose: 100 mls/hr Levothyroxine Sodium (Levothyroxine) 200 mcg PO DAILY@0600 [facility] Last Admin: 09/16/17 09:53 Dose: 200 mcg Levothyroxine Sodium (Levothyroxine) 175 mcg PO DAILY@0600 [facility] Last Admin: 09/17/17 06:14 Dose: 175 mcg Methylprednisolone Sodium Succinate (Solu-Medrol) 125 mg IVPUSH ONETIME ONE Stop: 09/15/17 20:38 Last Admin: 09/15/17 20:53 Dose: 125 mg - Exam Quality Assessment: Supplemental Oxygen General: Alert, Oriented, Cooperative HEENT: Pupils Equal Lungs: Normal Respiratory Effort, Decreased Breath Sounds Cardiovascular: Regular Rate, Regular Rhythm Extremities: Normal Inspection, Normal Range of Motion, Non-Tender, No Pedal Edema, Normal Capillary Refill - Problem List & Annotations (1) COPD (chronic obstructive pulmonary disease) SNOMED Code(s): 12082774 Code(s): J44.9 - CHRONIC OBSTRUCTIVE PULMONARY DISEASE, UNSPECIFIED Status : Acute Current Visit: No Qualifiers: COPD type: chronic bronchitis Annotation/Comment:: Probable COPD may be contributing to current sxs. There was little change with DuoNeb. (2) Cachexia SNOMED Code(s): 464753957 Code(s): R64 - [place] Status: Acute Current Visit: Yes (3) Palliative care status SNOMED Code(s): 185186039 Code(s): Z51.5 - ENCOUNTER FOR PALLIATIVE CARE Status: Acute Current Visit: Yes (4) Abnormal weight loss SNOMED Code(s): 211052908 Code(s): R63.4 - ABNORMAL WEIGHT LOSS Status: Acute Current Visit: No (5) Cancer of bladder SNOMED Code(s): 389316901 Code(s): C67.9 - MALIGNANT NEOPLASM OF BLADDER, UNSPECIFIED Status: Acute Current Visit: No Qualifiers: Bladder location: unspecified site Qualified Code(s): C67.9 - Malignant neoplasm of bladder, unspecified (6) Cancer of prostate SNOMED Code(s): 207934254 Code(s): C61 - MALIGNANT NEOPLASM OF PROSTATE Status: Acute Current Visit : No (7) Hypothyroid SNOMED Code(s): 34414692 Code(s): E03.9 - HYPOTHYROIDISM, UNSPECIFIED Status: Acute Current Visit : No Qualifiers: Hypothyroidism type: unspecified Qualified Code(s): E03.9 - Hypothyroidism , unspecified (8) Depression SNOMED Code(s): 37870484 Code(s): F32.9 - MAJOR DEPRESSIVE DISORDER, SINGLE EPISODE, UNSPECIFIED Status: Acute Current Visit: Yes Qualifiers: Depression Type: unspecified Qualified Code(s): F32.9 - Major depressive disorder, single episode, unspecified (9) Decubital ulcer SNOMED Code(s): 792218658 Code(s): L89.90 - PRESSURE ULCER OF UNSPECIFIED SITE, UNSPECIFIED STAGE Status: Acute Current Visit: Yes Qualifiers: Pressure ulcer location: upper back Pressure ulcer stage: stage 1 (10) Hypothyroid SNOMED Code(s): 06589353 Code(s): E03.9 - HYPOTHYROIDISM, UNSPECIFIED Status: Chronic Current Visit: Yes Qualifiers: Hypothyroidism type: unspecified Qualified Code(s): E03.9 - Hypothyroidism , unspecified (11) CAD (coronary artery disease) SNOMED Code(s): 80685090 Code(s): I25.10 - ATHSCL HEART DISEASE OF [place] CORONARY ARTERY W/O ANG PCTRS Status: Chronic Current Visit: Yes Qualifiers: Coronary Disease-Associated Artery/Lesion type: [place] artery (12) Afib SNOMED Code(s): 85718006 Code(s): I48.91 - UNSPECIFIED ATRIAL FIBRILLATION Status: Chronic Current Visit: Yes Qualifiers: Atrial fibrillation type: paroxysmal Qualified Code(s): I48.0 - Paroxysmal atrial fibrillation - Problem List Review Problem List Initiated/Reviewed/Updated: Yes - My Orders Last 24 Hours: My Active Orders 09/16/17 08:09 RT Aerosol Therapy [RC] ASDIRECTED 09/16/17 08:30 methylPREDNISolone Sod Succ [Solu-MEDROL] 125 mg IVPUSH Q8H 09/16/17 09:00 Aspirin 81 mg PO DAILY Docusate Sodium/Sennosides [Senna Plus] 1 tab PO BID Multivitamins [Childrens Chewable Vitamin] 1 tab PO DAILY Oxybutynin [Oxybutynin ER] 15 mg PO DAILY Pantoprazole [ProTONIX] 40 mg PO DAILY@0600 Sertraline [Zoloft] 150 mg PO DAILY Tamsulosin [Flomax] 0.4 mg PO PCBRK 09/16/17 09:08 Acetaminophen [Tylenol Extra Strength] 1,000 mg PO QID PRN 09/16/17 09:30 Loratadine [Claritin] 10 mg PO DAILY 09/16/17 10:00 Megestrol [Megace 40 MG/ML Susp] 400 mg PO DAILY 09/16/17 10:30 Apixaban [Eliquis] 2.5 mg PO BID 09/16/17 19:35 RT Aerosol Therapy [RC] ASDIRECTED 09/16/17 19:38 Albuterol/Ipratropium [DuoNeb 3.0-0.5 MG/3 ML] 3 ml NEB Q2H PRN 09/16/17 20:00 Albuterol/Ipratropium [DuoNeb 3.0-0.5 MG/3 ML] 3 ml NEB Q4H 09/16/17 21:00 Mirtazapine [Remeron] 45 mg PO BEDTIME atorvaSTATin [Lipitor] 20 mg PO BEDTIME 09/17/17 08:21 Chest w Cont [CT] Routine 09/18/17 05:11 B-TYPE NATRIURETIC PEPTIDE,BNP [CHEM] AM BASIC METABOLIC PANEL,BMP [CHEM] AM CBC WITH AUTO DIFF [HEME] AM - Plan Plan:: Patient still feels short of breath and has occasional cough. I will continue current medications, but I would stop the doses of Levaquin but decrease dose to 50 mg daily. I will also discontinue levothyroxine given his very low TSH.
[2017-09-17] MEDS: Levofloxacin/Dextrose 5%-Water 250 MG in Premix Bag 1 BAG IV SCH (09:58)
[2017-09-17] MEDS: Sodium Chloride 0.9% 250 ML IV SCH (10:00)
[2017-09-17] MEDS ORDERED: Iopamidol 755 Mg/ML 75 ML Bottle IV ONE (10:40)
[2017-09-17] MEDS: atorvaSTATin 20 MG Tab PO SCH (20:09)
[2017-09-17] MEDS: Mirtazapine 15 MG Tab PO SCH (20:09)
[2017-09-17] MEDS: Acetaminophen 500 MG Tab PO PRN (20:10)
[2017-09-18] MEDS: Albuterol/Ipratropium 3.0-0.5 MG/3 ML Neb Soln NEB SCH ×3 (05:00→13:37)
[2017-09-18] MEDS: Pantoprazole 40 MG Tab.CR PO SCH (05:37)
--- NOTE | 2017-09-18 08:56 | PCM.PN ---
- General Info Date of Service: 09/18/17 Subjective Update: Patient reports marked improvement of his symptoms. Feels back to his baseline at 100%. Has normal oxygen his appetite is better. Functional Status: Reports: Pain Controlled - Review of Systems General: Reports: No Symptoms HEENT: Reports: No Symptoms Pulmonary: Reports: No Symptoms Cardiovascular: Reports: No Symptoms Gastrointestinal: Reports: No Symptoms Genitourinary: Reports: No Symptoms Musculoskeletal: Reports: No Symptoms Skin: Reports: No Symptoms Neurological: Reports: No Symptoms Psychiatric: Reports: No Symptoms - Patient Data Vitals - Most Recent: Last Vital Signs Temp 98.2 F 09/18/17 04:00 Pulse 86 09/18/17 08:01 Resp 20 09/18/17 04:00 BP 104/54 L 09/18/17 04:00 Pulse Ox 93 L 09/18/17 07:47 Weight - Most Recent: 50.122 kg Lab Results Last 24 Hours: Laboratory Results - last 24 hr 09/18/17 09/18/17 Range/Units 06:15 06:15 WBC 7.8 (4.5-12.0) X10-3/uL RBC 3.09 L (4.30-5.75) x10(6)uL Hgb 9.0 L (11.5-15.5) g/dL Hct 27.0 L (30.0-51.3) % MCV 87.2 (80-96) fL MCH 29.1 (27.7-33.6) pg MCHC 33.3 (32.2-35.4) g/dL RDW 13.5 (11.5-15.5) % Plt Count 253 (125-369) X10(3)uL MPV 8.1 (7.4-10.4) fL Add Manual Diff Yes Neutrophils % (Manual) 97 H (46-82) % Lymphocytes % (Manual) 1 L (13-37) % Monocytes % (Manual) 2 L (4-12) % Sodium 134 L (135-145) mmol/L Potassium 4.0 (3.5-5.3) mmol/L Chloride 104 (100-110) mmol/L Carbon Dioxide 22 L (23-29) mmol/L BUN 36 H (8-23) mg/dL Creatinine 1.2 (0.6-1.3) mg/dL Est Cr Clr Drug Dosing 38.29 mL/min Estimated GFR (MDRD) 59 L (>60) BUN/Creatinine Ratio 30.0 H (9-20) Glucose 139 H (80-116) mg/dL Calcium 8.6 (8.6-10.2) mg/dL NT-Pro-B Natriuret Pep 3189 H (5-125) pg/mL Med Orders - Current: Current Medications Acetaminophen (Tylenol Extra Strength) 1,000 mg PO QID PRN PRN Reason: Pain Last Admin: 09/17/17 20:10 Dose: 1,000 mg Albuterol/Ipratropium (Duoneb 3.0-0.5 Mg/3 Ml) 3 ml NEB Q4H [facility] Last Admin: 09/18/17 07:47 Dose: 3 ml Albuterol/Ipratropium (Duoneb 3.0-0.5 Mg/3 Ml) 3 ml NEB Q2H PRN PRN Reason: Shortness of Breath Apixaban (Eliquis) 2.5 mg PO BID [facility] Last Admin: 09/17/17 20:09 Dose: 2.5 mg Aspirin (Aspirin) 81 mg PO DAILY [facility] Last Admin: 09/17/17 08:12 Dose: 81 mg Atorvastatin Calcium (Lipitor) 20 mg PO BEDTIME [facility] Last Admin: 09/17/17 20:09 Dose: 20 mg Levofloxacin/Dextrose 250 mg/ (Premix) 50 mls @ 50 mls/hr IV Q24H [facility] Last Admin: 09/17/17 09:58 Dose: 50 mls/hr Sodium Chloride (Normal Saline) 250 mls @ 100 mls/hr IV ASDIRECTED [facility] Last Admin: 09/17/17 10:00 Dose: 100 mls/hr Loratadine (Claritin) 10 mg PO DAILY [facility] Last Admin: 09/17/17 08:13 Dose: 10 mg Megestrol Acetate (Megace 40 Mg/Ml Susp) 400 mg PO DAILY [facility] Last Admin: 09/17/17 08:14 Dose: 400 mg Methylprednisolone Sodium Succinate (Solu-Medrol) 125 mg IVPUSH Q8H [facility] Last Admin: 09/17/17 23:31 Dose: 125 mg Mirtazapine (Remeron) 45 mg PO BEDTIME [facility] Last Admin: 09/17/17 20:09 Dose: 45 mg Multivitamins/Minerals/Vitamin C (Childrens Chewable Vitamin) 1 tab PO DAILY [facility] Last Admin: 09/17/17 08:12 Dose: 1 tab Oxybutynin Chloride (Oxybutynin Er) 15 mg PO DAILY [facility] Last Admin: 09/17/17 08:15 Dose: 15 mg Pantoprazole Sodium (Protonix) 40 mg PO DAILY@0600 [facility] Last Admin: 09/18/17 05:37 Dose: 40 mg Senna/Docusate Sodium (Senna Plus) 1 tab PO BID [facility] Last Admin: 09/17/17 20:09 Dose: 1 tab Sertraline HCl (Zoloft) 150 mg PO DAILY [facility] Last Admin: 09/17/17 08:16 Dose: 150 mg Sodium Chloride (Saline Flush) 10 ml FLUSH ASDIRECTED PRN PRN Reason: Keep Vein Open Last Admin: 09/17/17 23:34 Dose: 10 ml Tamsulosin HCl (Flomax) 0.4 mg PO PCBRK [facility] Last Admin: 09/17/17 08:13 Dose: 0.4 mg Discontinued Medications Albuterol (Proventil Neb Soln) 2.5 mg NEB Q2H PRN PRN Reason: Shortness Of Breath/wheezing Last Admin: 09/16/17 00:19 Dose: 2.5 mg Albuterol/Ipratropium (Duoneb 3.0-0.5 Mg/3 Ml) 3 ml NEB ONETIME ONE Stop: 09/15/17 20:40 Last Admin: 09/15/17 20:53 Dose: 3 ml Albuterol/Ipratropium (Duoneb 3.0-0.5 Mg/3 Ml) 3 ml NEB QIDRT [facility] Last Admin: 09/16/17 16:22 Dose: 3 ml Enoxaparin Sodium (Lovenox) 30 mg SUBCUT DAILY [facility] Last Admin: 09/16/17 11:05 Dose: Not Given Levofloxacin/Dextrose 500 mg/ (Premix) 100 mls @ 100 mls/hr IV Q24H [facility] Last Admin: 09/16/17 09:33 Dose: 100 mls/hr Iopamidol (Isovue-370 (76%)) 75 ml IV ONETIME ONE Stop: 09/17/17 10:41 Last Admin: 09/17/17 11:02 Dose: 70 ml Levothyroxine Sodium (Levothyroxine) 200 mcg PO DAILY@0600 [facility] Last Admin: 09/16/17 09:53 Dose: 200 mcg Levothyroxine Sodium (Levothyroxine) 175 mcg PO DAILY@0600 [facility] Last Admin: 09/17/17 06:14 Dose: 175 mcg Methylprednisolone Sodium Succinate (Solu-Medrol) 125 mg IVPUSH ONETIME ONE Stop: 09/15/17 20:38 Last Admin: 09/15/17 20:53 Dose: 125 mg - Exam Quality Assessment: No: Supplemental Oxygen General: Alert, Oriented HEENT: Pupils Equal, Pupils Reactive, EOMI, Mucous Membr. Moist/[place] Neck: Supple Lungs: Decreased Breath Sounds Cardiovascular: Regular Rate, Regular Rhythm - Problem List & Annotations (1) COPD (chronic obstructive pulmonary disease) SNOMED Code(s): 51155450 Code(s): J44.9 - CHRONIC OBSTRUCTIVE PULMONARY DISEASE, UNSPECIFIED Status : Acute Current Visit: No Qualifiers: COPD type: chronic bronchitis Annotation/Comment:: Probable COPD may be contributing to current sxs. There was little change with DuoNeb. (2) Cachexia SNOMED Code(s): 507269369 Code(s): R64 - [place] Status: Acute Current Visit: Yes (3) Palliative care status SNOMED Code(s): 119744212 Code(s): Z51.5 - ENCOUNTER FOR PALLIATIVE CARE Status: Acute Current Visit: Yes (4) Abnormal weight loss SNOMED Code(s): 181031320 Code(s): R63.4 - ABNORMAL WEIGHT LOSS Status: Acute Current Visit: No (5) Cancer of bladder SNOMED Code(s): 250127180 Code(s): C67.9 - MALIGNANT NEOPLASM OF BLADDER, UNSPECIFIED Status: Acute Current Visit: No Qualifiers: Bladder location: unspecified site Qualified Code(s): C67.9 - Malignant neoplasm of bladder, unspecified (6) Cancer of prostate SNOMED Code(s): 163187369 Code(s): C61 - MALIGNANT NEOPLASM OF PROSTATE Status: Acute Current Visit : No (7) Hypothyroid SNOMED Code(s): 33897954 Code(s): E03.9 - HYPOTHYROIDISM, UNSPECIFIED Status: Acute Current Visit : No Qualifiers: Hypothyroidism type: unspecified Qualified Code(s): E03.9 - Hypothyroidism , unspecified (8) Depression SNOMED Code(s): 22473235 Code(s): F32.9 - MAJOR DEPRESSIVE DISORDER, SINGLE EPISODE, UNSPECIFIED Status: Acute Current Visit: Yes Qualifiers: Depression Type: unspecified Qualified Code(s): F32.9 - Major depressive disorder, single episode, unspecified (9) Decubital ulcer SNOMED Code(s): 654468986 Code(s): L89.90 - PRESSURE ULCER OF UNSPECIFIED SITE, UNSPECIFIED STAGE Status: Acute Current Visit: Yes Qualifiers: Pressure ulcer location: upper back Pressure ulcer stage: stage 1 (10) Hypothyroid SNOMED Code(s): 91979777 Code(s): E03.9 - HYPOTHYROIDISM, UNSPECIFIED Status: Chronic Current Visit: Yes Qualifiers: Hypothyroidism type: unspecified Qualified Code(s): E03.9 - Hypothyroidism , unspecified (11) CAD (coronary artery disease) SNOMED Code(s): 92275843 Code(s): I25.10 - ATHSCL HEART DISEASE OF [place] CORONARY ARTERY W/O ANG PCTRS Status: Chronic Current Visit: Yes Qualifiers: Coronary Disease-Associated Artery/Lesion type: [place] artery (12) Afib SNOMED Code(s): 59884892 Code(s): I48.91 - UNSPECIFIED ATRIAL FIBRILLATION Status: Chronic Current Visit: Yes Qualifiers: Atrial fibrillation type: paroxysmal Qualified Code(s): I48.0 - Paroxysmal atrial fibrillation - Problem List Review Problem List Initiated/Reviewed/Updated: Yes - My Orders Last 24 Hours: My Active Orders 09/17/17 08:30 Levofloxacin/Dextrose 5%-Water [Levaquin in D5W 250 MG/50 ML] 250 mg Premix Bag 1 bag IV Q24H 09/17/17 10:15 Sodium Chloride 0.9% [Normal Saline] 250 ml IV ASDIRECTED 09/17/17 11:43 Ang Chest [CT] Routine - Plan Plan:: Patient feels much better today. CT scan showed the pneumonia. I will discharge him home today with Levaquin, Megace, and prednisone for COPD exacerbation.
[2017-09-18] MEDS: Sodium Chloride 0.9% 10 ML Syringe FLUSH PRN (09:29)
[2017-09-18] MEDS: Levofloxacin/Dextrose 5%-Water 250 MG in Premix Bag 1 BAG IV SCH (09:29)
[2017-09-18] MEDS: Sodium Chloride 0.9% 250 ML IV SCH (09:29)
[2017-09-18] MEDS: methylPREDNISolone Sodium Succinate 125 MG/2 ML SDV IVPUSH SCH (09:32)
[2017-09-18] MEDS: Apixaban 5 MG Tab PO SCH (09:34)
[2017-09-18] MEDS: Aspirin 81 MG Tab.Chew PO SCH (09:34)
[2017-09-18] MEDS: Loratadine 10 MG Tab PO SCH (09:34)
[2017-09-18] MEDS: Multivitamin, Childrens Tab.Chew PO SCH (09:34)
[2017-09-18] MEDS: Tamsulosin 0.4 MG Cap.ER PO SCH (09:35)
[2017-09-18] MEDS: Megestrol Susp 40 MG/ML ML (240 ML Bottle) PO SCH (09:35)
[2017-09-18] MEDS: Oxybutynin 5 MG Tab.ER PO SCH (09:36)
[2017-09-18] MEDS: Sertraline 50 MG Tab PO SCH (09:36)
--- NOTE | 2017-09-18 09:58 | DISCH ---
DISCHARGE DATE: 09/18/2017 REASON FOR ADMISSION: Shortness of breath. DISCHARGE DIAGNOSES: 1. Chronic obstructive pulmonary disease exacerbation. 2. Community-acquired pneumonia. 3. History of prostate and bladder cancer. 4. Cachexia and malnutrition. 5. Tobacco abuse. CONSULTATIONS: None. BRIEF HISTORY: A 72-year-old male from [facility], admitted because of shortness of breath, fairly acute in onset. He is known to have COPD, treated with Solu-Medrol and Levaquin, and symptoms improved markedly. Also, started him on Megace for appetite improvement. He was ready to go home and was off oxygen on the . DISCHARGE MEDICATIONS: 1. Levaquin 250 mg a day to complete one week. 2. Aspirin 81 mg a day. 3. Eliquis 2.5 g b.i.d. from home medication. 4. Megace 400 mg daily. 5. Mirtazapine 45 mg at bedtime. 6. Prednisone 20 mg b.i.d. for 5 days. 7. Protonix 40 mg a day. 8. Oxybutynin 15 mg daily. 9. Sertraline 150 mg daily. 10.Flomax 0.4 mg every day. FOLLOWUP: See the physician at the [facility] within 1 week of discharge. I advised him on tobacco cessation. 35 minutes was spent in the discharge of this patient. /[id number] SHERRI/HENNA
[2017-09-18 13:31] VITALS: BP 115/53
== END 2017-09-18 11:20 | disposition home health service (06) | DRG 194 ==
LOC: FB.ED 19:00 → FB.MS 20:50
PROVIDERS: ADMIT Emergency Medicine; ATTEND Family Medicine
DX: J18.9 Pneumonia, unspecified organism (principal); J44.1 Chronic obstructive pulmonary disease with (acute) exacerbation; N39.0 Urinary tract infection, site not specified; R64 Cachexia; E46 Unspecified protein-calorie malnutrition; Z68.1 Body mass index [BMI] 19.9 or less, adult; F17.210 Nicotine dependence, cigarettes, uncomplicated; R32 Unspecified urinary incontinence; R06.02 Shortness of breath; E03.9 Hypothyroidism, unspecified; Z66 Do not resuscitate; Z51.5 Encounter for palliative care; L89.101 Pressure ulcer of unspecified part of back, stage 1; I25.10 Atherosclerotic heart disease of native coronary artery without angina pectoris; I48.0 Paroxysmal atrial fibrillation; Z85.46 Personal history of malignant neoplasm of prostate; Z85.51 Personal history of malignant neoplasm of bladder; F32.9 Major depressive disorder, single episode, unspecified; Z87.01 Personal history of pneumonia (recurrent); H54.7 Unspecified visual loss; Z96.649 Presence of unspecified artificial hip joint; Z96.659 Presence of unspecified artificial knee joint; Z79.82 Long term (current) use of aspirin; Z79.01 Long term (current) use of anticoagulants
CPT/HCPCS: 36415; 71010; 71275; 80048; 81001; 82550; 83605; 83880; 84443; 84484; 85025; 85610; 93005; 94640; 96374; 99285; A9270-GY; J1956; J2930; J7050; J7620; Q9967

== ENCOUNTER 2017-12-24 12:38 | Emergency (ER) | payer MEDICARE, OTHER, MEDICAID ==
[2017-12-24] MEDS ORDERED: Sodium Chloride 0.9% 10 ML Syringe FLUSH PRN (12:40)
--- NOTE | 2017-12-24 12:52 | EDM.PDOC ---
ED HPI GENERAL MEDICAL PROBLEM - General Stated Complaint: ABD PAIN Time Seen by Provider: 12/24/17 12:38 Source of Information: Reports: Patient, EMS - History of Present Illness INITIAL COMMENTS - FREE TEXT/NARRATIVE: 72 y.o.w.m with a h/o bladder CA, living in a NH, came to the ed by EMS due to lower abd. pain which was subsiding an arrival. Pt had poor water intake in the past few days. No N/V/D or any other acute medial issues at this time. BP 150/ 100 Pulse 75 RR 20 Pulse 0x 95% on RA Temp 36.9 Onset Date: 12/21/17 Onset Time: 07:00 Duration: Day(s):, Constant, Intermittent Location: Reports: Abdomen Quality: Reports: Dull, Same as Previous Episode Severity: Mild Improves with: Reports: Rest Worsens with: Reports: Movement Context: Reports: Other (H/O Bladder CA) Associated Symptoms: Reports: No Other Symptoms - Related Data Allergies Allergy/AdvReac Type Severity Reaction Status Date / Time No Known Allergies Allergy Verified 09/15/17 20:12 Home Meds: Home Meds Tamsulosin [Flomax] 0.4 mg PO PCBRK #30 cap.er 11/25/13 [Rx] Multivitamin [Daily Vitamin] 1 tab PO DAILY 10/21/14 [History] Omeprazole 40 mg PO DAILY 10/21/14 [History] Ferrous Gluconate 324 mg PO DAILY 11/22/14 [History] Oxybutynin Chloride [Ditropan Xl] 15 mg PO DAILY 12/25/14 [History] Mirtazapine 45 mg PO BEDTIME 02/03/16 [History] Sertraline [Zoloft] 150 mg PO DAILY 30 Days tab 03/02/16 [Rx] Albuterol/Ipratropium [DuoNeb 3.0-0.5 MG/3 ML] 3 ml NEB Q4H PRN #120 neb [Rx] Acetaminophen 1,000 mg PO TID PRN 09/15/17 [History] Apixaban [Eliquis] 2.5 mg PO BID 09/15/17 [History] Aspirin 81 mg PO DAILY 09/15/17 [History] Dicyclomine [Bentyl] 10 mg PO QIDACANDBED 09/15/17 [History] Loratadine 10 mg PO DAILY 09/15/17 [History] Metoprolol Tartrate [Lopressor] 12.5 mg PO BID 09/15/17 [History] Sennosides/Docusate Sodium [Sennosides-Docusate Sodium] 1 tab PO BID 09/15/17 [ History] Triamcinolone Acetonide [Triamcinolone Acetonide 0.1% Oint] 1 applic TOP DAILY 09/15/17 [History] atorvaSTATin [Lipitor] 20 mg PO BEDTIME 09/15/17 [History] Sodium Chloride 1 gm PO TID 09/16/17 [History] Calcium Carbonate [Tums] 750 mg PO DAILY PRN 12/24/17 [History] Levothyroxine 87.5 mcg PO ACBRK 12/24/17 [History] Past Medical History HEENT History: Reports: Impaired Vision Other HEENT History: EYEGLASSES, wears full dentures Cardiovascular History: Reports: Afib, CAD Respiratory History: Reports: Pneumonia, Recurrent, Other (See Below) Other Respiratory History: long time smoker Genitourinary History: Reports: Urinary Incontinence Other Musculoskeletal History: RODS PLACED IN BACK. Psychiatric History: Reports: Depression Endocrine/Metabolic History: Reports: Hypothyroidism Hematologic History: Reports: Blood Transfusion(s) Oncologic (Cancer) History: Reports: Bladder Dermatologic History: Reports: Other (See Below) Other Dermatologic History: MULTIPLE OLD HEALED SCRATCH [place] - Infectious Disease History Infectious Disease History: Reports: None - Past Surgical History Musculoskeletal Surgical History: Reports: Hip Replacement, Knee Replacement Social & Family History - Family History OBGYN: Reports: Endocrine/Metabolic: Reports: Diabetes, type II Other Dermatologic Family History: SISTER OF MVC Oncologic: Reports: Other (See Below) Other Oncologic Family History: BOTH MOTHER, FATHER AND BROTHER OF CA. PT UNSURE OF KIND - Tobacco Use Smoking Status *Q: Current Every Day Smoker Years of Tobacco use: 55 Packs/Tins Daily: 0.2 Used Tobacco, but Quit: No Month Tobacco Last Used: UNKNOWN Second Hand Smoke Exposure: No - Caffeine Use Caffeine Use: Reports: Coffee Caffeine Use Comment: 5-6 cups a day - Alcohol Use Days Per Week of Alcohol Use: 0 - Recreational Drug Use Recreational Drug Use: No Drug Use in Last 12 Months: No ED ROS GENERAL - Review of Systems Review Of Systems: See Below Constitutional: Reports: Weakness HEENT: Reports: No Symptoms Respiratory: Reports: No Symptoms Cardiovascular: Reports: No Symptoms Endocrine: Reports: No Symptoms GI/Abdominal: Reports: No Symptoms : Reports: No Symptoms Musculoskeletal: Reports: No Symptoms Skin: Reports: No Symptoms Neurological: Reports: No Symptoms Psychiatric: Reports: No Symptoms Hematologic/Lymphatic: Reports: No Symptoms Immunologic: Reports: No Symptoms ED EXAM, GI/ABD - Physical Exam Exam: See Below Exam Limited By: No Limitations General Appearance: Alert, WD/WN, No Apparent Distress, Cachetic Eyes: Bilateral: Normal Appearance Ears: Normal External Exam Nose: Normal Inspection, Normal Mucosa, No Blood Throat/Mouth: Normal Lips, Normal Gums, No Airway Compromise, Other (dry mucosal membrane) Head: Atraumatic, Normocephalic Neck: Normal Inspection, Supple, Non-Tender Respiratory/Chest: No Respiratory Distress, Lungs Clear (poor insp effort) Cardiovascular: Normal Peripheral Pulses, Regular Rate, Rhythm, No Edema GI/Abdominal Exam: Normal Bowel Sounds, Soft, Non-Tender, No Organomegaly, No Mass, Pelvis Stable (Male) Exam: Deferred Rectal (Males) Exam: Deferred Back Exam: Normal Inspection, Full Range of Motion Extremities: Normal Inspection, Normal Range of Motion, Non-Tender, No Pedal Edema Neurological: Alert, Oriented, CN II-XII Intact, Normal Cognition, Normal Gait Psychiatric: Normal Affect, Normal Mood Skin Exam: Warm, Dry, Intact, Pallor Lymphatic: No Adenopathy Course - Vital Signs Text/Narrative:: 72 y.o.w.m with a h/o bladder [place], living in a NH, came to the ed by EMS due to lower abd. pain which was subsiding an arrival. Pt had poor water intake in the past few days. No N/V/D or any other acute medial issues at this time. BP 150/ 100 Pulse 75 RR 20 Pulse 0x 95% on RA Temp 36.9 PE: WD thin, pale appearing male. Labs: WBC 6.8 HGB 10.6 UA neg GFR 55 Imaging: abd/pelvis: NAD Tx: NS Reexam: Improved, was able to ambulate well, requesting to be D/C Plan: D/C with instructions Last Recorded V/S: Last Vital Signs Temp 37.1 C 12/24/17 12:49 Pulse 62 12/24/17 12:49 Resp 20 12/24/17 12:49 BP 150/100 H 12/24/17 12:49 Pulse Ox 97 12/24/17 12:49 - Orders/Labs/Meds Orders: Active Orders 24 hr Category Date Time Status Oxygen Therapy [RC] ASDIRECTED Care 12/24/17 12:40 Active Abdomen Pelvis w Cont [CT] Stat Exams 12/24/17 12:49 Taken Diatrizoate Daysi/Diatrizoate Na [Gastrografin 37%] Med 12/24/17 14:45 Active 30 ml PO . DIRECTED Sodium Chloride 0.9% [Normal Saline] 1,000 ml Med 12/24/17 13:00 Active IV ASDIRECTED Sodium Chloride 0.9% [Saline Flush] Med 12/24/17 12:40 Active 10 ml FLUSH ASDIRECTED PRN Medication Orders Diatrizoate Meglum/Diatrizoate Sod (Gastrografin 37%) 30 ml PO . DIRECTED [facility] Last Admin: 12/24/17 14:56 Dose: 30 ml Sodium Chloride (Normal Saline) 1,000 mls @ 125 mls/hr IV ASDIRECTED [facility] Last Admin: 12/24/17 12:40 Dose: 125 mls/hr Sodium Chloride (Saline Flush) 10 ml FLUSH ASDIRECTED PRN PRN Reason: Other Last Admin: 12/24/17 14:37 Dose: 10 ml Labs: Laboratory Tests 12/24/17 12/24/17 12/24/17 Range/Units 13:00 13:00 13:00 WBC 6.8 (4.5-12.0) X10-3/uL RBC 3.50 L (4.30-5.75) x10(6)uL Hgb 10.6 L (11.5-15.5) g/dL Hct 31.3 (30.0-51.3) % MCV 89.3 (80-96) fL MCH 30.4 (27.7-33.6) pg MCHC 34.0 (32.2-35.4) g/dL RDW 13.1 (11.5-15.5) % Plt Count 232 (125-369) X10(3)uL MPV 7.7 (7.4-10.4) fL Neut % (Auto) 77.8 (46-82) % Lymph % (Auto) 10.7 L (13-37) % [place] % (Auto) 7.8 (4-12) % Eos % (Auto) 3 (1.0-5.0) % Baso % (Auto) 1 (0-2) % Neut # (Auto) 5.4 (1.6-8.3) # Lymph # (Auto) 0.7 (0.6-5.0) # [place] # (Auto) 0.5 (0.0-1.3) # Eos # (Auto) 0.2 (0.0-0.8) # Baso # (Auto) 0.0 (0.0-0.2) # PT 10.9 (8.7-11.1) INR 1.08 (0.89-1.13) Sodium 138 (135-145) mmol/L Potassium 4.1 (3.5-5.3) mmol/L Chloride 102 (100-110) mmol/L Carbon Dioxide 29 (21-32) mmol/L BUN 18 (7-18) mg/dL Creatinine 1.2 (0.70-1.30) mg/dL Est Cr Clr Drug Dosing 39.50 mL/min Estimated GFR (MDRD) 59 L (>60) BUN/Creatinine Ratio 15.0 (9-20) Glucose 130 H (80-116) mg/dL Lactic Acid (0.4-2.2) mmol/L Calcium 8.8 (8.6-10.2) mg/dL NT-Pro-B Natriuret Pep (<=125) pg/mL Urine Color (YELLOW) Urine Appearance (CLEAR) Urine pH (5.0-6.5) Ur Specific [place] (1.010-1.025) Urine Protein (NEGATIVE) mg/dL Urine Glucose (UA) (NEGATIVE) mg/dL Urine Ketones (NEGATIVE) mg/dL Urine Occult Blood (NEGATIVE) Urine Nitrite (NEGATIVE) Urine Bilirubin (NEGATIVE) Urine Urobilinogen (NEGATIVE) mg/dL Ur Leukocyte Esterase (NEGATIVE) Urine RBC (0) Urine WBC (0) Ur Squamous Epith Cells (NS,R,O) Urine Bacteria (NS) 12/24/17 12/24/17 12/24/17 Range/Units 13:00 13:00 13:47 WBC (4.5-12.0) X10-3/uL RBC (4.30-5.75) x10(6)uL Hgb (11.5-15.5) g/dL Hct (30.0-51.3) % MCV (80-96) fL MCH (27.7-33.6) pg MCHC (32.2-35.4) g/dL RDW (11.5-15.5) % Plt Count (125-369) X10(3)uL MPV (7.4-10.4) fL Neut % (Auto) (46-82) % Lymph % (Auto) (13-37) % [place] % (Auto) (4-12) % Eos % (Auto) (1.0-5.0) % Baso % (Auto) (0-2) % Neut # (Auto) (1.6-8.3) # Lymph # (Auto) (0.6-5.0) # [place] # (Auto) (0.0-1.3) # Eos # (Auto) (0.0-0.8) # Baso # (Auto) (0.0-0.2) # PT (8.7-11.1) INR (0.89-1.13) Sodium (135-145) mmol/L Potassium (3.5-5.3) mmol/L Chloride (100-110) mmol/L Carbon Dioxide (21-32) mmol/L BUN (7-18) mg/dL Creatinine (0.70-1.30) mg/dL Est Cr Clr Drug Dosing mL/min Estimated GFR (MDRD) (>60) BUN/Creatinine Ratio (9-20) Glucose (80-116) mg/dL Lactic Acid 0.8 (0.4-2.2) mmol/L Calcium (8.6-10.2) mg/dL NT-Pro-B Natriuret Pep 419 H (<=125) pg/mL Urine Color Yellow (YELLOW) Urine Appearance Clear (CLEAR) Urine pH 7.0 H (5.0-6.5) Ur Specific [place] 1.005 L (1.010-1.025) Urine Protein Negative (NEGATIVE) mg/dL Urine Glucose (UA) Normal (NEGATIVE) mg/dL Urine Ketones Negative (NEGATIVE) mg/dL Urine Occult Blood Negative (NEGATIVE) Urine Nitrite Negative (NEGATIVE) Urine Bilirubin Negative (NEGATIVE) Urine Urobilinogen Normal (NEGATIVE) mg/dL Ur Leukocyte Esterase Negative (NEGATIVE) Urine RBC 5-10 (0) Urine WBC 0-5 (0) Ur Squamous Epith Cells Rare (NS,R,O) Urine Bacteria Rare H (NS) Meds: Medications Generic Name Dose Route Start Last Admin Trade Name Freq PRN Reason Stop Dose Admin Diatrizoate Meglum/Diatrizoate Sod 30 ml 12/24/17 14:45 12/24/17 14:56 Gastrografin 37% PO 30 ml . DIRECTED ADILIA Administration Sodium Chloride 1,000 mls @ 125 mls/hr 12/24/17 13:00 12/24/17 12:40 Normal Saline IV 125 mls/hr ASDIRECTED ADILIA Administration Sodium Chloride 10 ml 12/24/17 12:40 12/24/17 14:37 Saline Flush FLUSH 10 ml ASDIRECTED PRN Administration Other Discontinued Medications Generic Name Dose Route Start Last Admin Trade Name Freq PRN Reason Stop Dose Admin Iopamidol 59 ml 12/24/17 14:35 12/24/17 14:56 Isovue-370 (76%) IV 12/24/17 14:36 59 ml ONETIME ONE Administration Departure - Departure Time of Disposition: 17:18 Disposition: Home, Self-Care 01 Condition: Good Clinical Impression: Dehydration Abdominal pain Qualifiers: Abdominal location: lower abdomen, unspecified Qualified Code(s): R10.30 - Lower abdominal pain, unspecified - Discharge Information Instructions: Rehydration, Elderly Referrals: Michael Cosme MD [Primary Care Provider] - Forms: ED Department Discharge Additional Instructions: please cont your current meds, please increase water intake, please f/u, please come back to the ed if your symptoms get worse acutely - My Orders Last 24 Hours: My Active Orders 12/24/17 12:40 Oxygen Therapy [RC] ASDIRECTED Sodium Chloride 0.9% [Saline Flush] 10 ml FLUSH ASDIRECTED PRN 12/24/17 12:49 Abdomen Pelvis w Cont [CT] Stat 12/24/17 13:00 Sodium Chloride 0.9% [Normal Saline] 1,000 ml IV ASDIRECTED 12/24/17 14:45 Diatrizoate Daysi/Diatrizoate Na [Gastrografin 37%] 30 ml PO . DIRECTED - Assessment/Plan Last 24 Hours: My Active Orders 12/24/17 12:40 Oxygen Therapy [RC] ASDIRECTED Sodium Chloride 0.9% [Saline Flush] 10 ml FLUSH ASDIRECTED PRN 12/24/17 12:49 Abdomen Pelvis w Cont [CT] Stat 12/24/17 13:00 Sodium Chloride 0.9% [Normal Saline] 1,000 ml IV ASDIRECTED 12/24/17 14:45 Diatrizoate Daysi/Diatrizoate Na [Gastrografin 37%] 30 ml PO . DIRECTED
[2017-12-24] MEDS ORDERED: Sodium Chloride 0.9% 1,000 ML IV SCH (13:00)
[2017-12-24 13:13] VITALS: BP 150/100
[2017-12-24] MEDS ORDERED: Iopamidol 755 Mg/ML 75 ML Bottle IV ONE (14:35)
[2017-12-24] MEDS ORDERED: Diatrizoate Meglumine/Diatrizoate Sodium 37% 30 ML Bottle PO SCH (14:45)
== END 2017-12-24 18:30 | disposition home or self-care (01) ==
LOC: FB.ED 12:38
DX: R10.30 Lower abdominal pain, unspecified (principal); E86.0 Dehydration; E03.9 Hypothyroidism, unspecified; F17.210 Nicotine dependence, cigarettes, uncomplicated; Z79.899 Other long term (current) drug therapy; Z79.82 Long term (current) use of aspirin
CPT/HCPCS: 36415; 74177; 80048; 81001; 83605; 83880; 85025; 85610; 96360; 96361; 99284; A9270; J7040; J7050; Q9967; 99283; J7030

== ENCOUNTER 2017-12-30 12:54 | Inpatient (IN) | payer MEDICARE, OTHER, MEDICAID ==
[2017-12-30] MEDS ORDERED: Piperacillin/Tazobactam 2.25 GM in Sodium Chloride 0.9% 50 ML IV SCH (14:00)
[2017-12-30] MEDS ORDERED: Morphine 2 MG/ML Syringe IVPUSH SCH (14:00)
[2017-12-30] MEDS ORDERED: Albuterol/Ipratropium 3.0-0.5 MG/3 ML Neb Soln ONE (14:04)
[2017-12-30] MEDS ORDERED: Albuterol/Ipratropium 3.0-0.5 MG/3 ML Neb Soln NEB PRN ×2 (14:04→19:40)
[2017-12-30] MEDS ORDERED: Morphine 2 MG/ML Syringe IVPUSH PRN (14:05)
[2017-12-30] MEDS ORDERED: Sodium Chloride 0.9% 1,000 ML IV SCH (14:15)
[2017-12-30] MEDS: Piperacillin/Tazobactam 3.375 GM in Sodium Chloride 0.9% 50 ML IV SCH ×2 (14:24→21:03)
[2017-12-30] MEDS ORDERED: Enoxaparin 30 MG/0.3 ML Syringe SUBCUT SCH (17:00)
[2017-12-30] MEDS ORDERED: cefTRIAXone 1,000 MG in Sodium Chloride 0.9% 50 ML IV SCH (17:00)
--- NOTE | 2017-12-30 17:06 | PCM.HP ---
H&P History of Present Illness - General Date of Service: 12/30/17 Admit Problem/Dx: Admission Diagnosis/Problem Admission Diagnosis/Problem COPD with acute lower respiratory infection Source of Information: Patient History Limitations: Reports: No Limitations - History of Present Illness Initial Comments - Free Text/Narative: This is a 72-year-old male patient of [facility]. He's have a 2 week history of shortness of breath and a productive cough. He says he feels cold all the time for last month but no fevers. He has nasal congestion but no sore throat, ear pain. Shortness of breath is been getting worse so they brought him to the ER. He was using a sensory muscle respiration so he was admitted. He has history of smoking for 20 years he says he smokes 1 cigarette a day. He denies any leg swelling, M.D., orthopnea or leg swelling. - Related Data Allergies/Adverse Reactions: Allergies Allergy/AdvReac Type Severity Reaction Status Date / Time No Known Allergies Allergy Verified 12/30/17 13:01 Home Medications: Home Meds Tamsulosin [Flomax] 0.4 mg PO PCBRK #30 cap.er 11/25/13 [Rx] Multivitamin [Daily Vitamin] 1 tab PO DAILY 10/21/14 [History] Omeprazole 40 mg PO DAILY 10/21/14 [History] Ferrous Gluconate 324 mg PO DAILY 11/22/14 [History] Oxybutynin Chloride [Ditropan Xl] 15 mg PO DAILY 12/25/14 [History] Mirtazapine 45 mg PO BEDTIME 02/03/16 [History] Sertraline [Zoloft] 150 mg PO DAILY 30 Days tab 03/02/16 [Rx] Albuterol/Ipratropium [DuoNeb 3.0-0.5 MG/3 ML] 3 ml NEB Q4H PRN #120 neb [Rx] Acetaminophen 1,000 mg PO TID PRN 09/15/17 [History] Apixaban [Eliquis] 2.5 mg PO BID 09/15/17 [History] Aspirin 81 mg PO DAILY 09/15/17 [History] Dicyclomine [Bentyl] 10 mg PO QIDACANDBED 09/15/17 [History] Loratadine 10 mg PO DAILY 09/15/17 [History] Metoprolol Tartrate [Lopressor] 12.5 mg PO BID 09/15/17 [History] Sennosides/Docusate Sodium [Sennosides-Docusate Sodium] 1 tab PO BID 09/15/17 [ History] Triamcinolone Acetonide [Triamcinolone Acetonide 0.1% Oint] 1 applic TOP DAILY 09/15/17 [History] atorvaSTATin [Lipitor] 20 mg PO BEDTIME 09/15/17 [History] Sodium Chloride 1 gm PO TID 09/16/17 [History] Calcium Carbonate [Tums] 750 mg PO DAILY PRN 12/24/17 [History] Levothyroxine 87.5 mcg PO ACBRK 12/24/17 [History] Past Medical History HEENT History: Reports: Impaired Vision Other HEENT History: EYEGLASSES, wears full dentures Cardiovascular History: Reports: Afib, CAD Respiratory History: Reports: Pneumonia, Recurrent, Other (See Below) Other Respiratory History: long time smoker Genitourinary History: Reports: Prostate Disorder, Urinary Incontinence Other Musculoskeletal History: RODS PLACED IN BACK. Psychiatric History: Reports: Depression Endocrine/Metabolic History: Reports: Hypothyroidism Hematologic History: Reports: Blood Transfusion(s) Oncologic (Cancer) History: Reports: Bladder Dermatologic History: Reports: Other (See Below) Other Dermatologic History: MULTIPLE OLD HEALED SCRATCH [place] - Infectious Disease History Infectious Disease History: Reports: None - Past Surgical History GI Surgical History: Reports: Appendectomy Male Surgical History: Reports: Other (See Below) Other Male Surgeries/Procedures: radiation for bladder cancer Musculoskeletal Surgical History: Reports: Hip Replacement, Knee Replacement, Other (See Below) Other Musculoskeletal Surgeries/Procedures:: rt foot fused Social & Family History - Family History Family Medical History: Noncontributory OBGYN: Reports: Endocrine/Metabolic: Reports: Diabetes, type II Other Dermatologic Family History: SISTER OF MVC Oncologic: Reports: Other (See Below) Other Oncologic Family History: BOTH MOTHER, FATHER AND BROTHER OF CA. PT UNSURE OF KIND - Tobacco Use Smoking Status *Q: Current Every Day Smoker Years of Tobacco use: 58 Packs/Tins Daily: 0.2 Used Tobacco, but Quit: No Month Tobacco Last Used: UNKNOWN Second Hand Smoke Exposure: No - Caffeine Use Caffeine Use: Reports: Coffee Caffeine Use Comment: 5-6 cups a day - Alcohol Use Days Per Week of Alcohol Use: 0 - Recreational Drug Use Recreational Drug Use: No Drug Use in Last 12 Months: No H&P Review of Systems - Review of Systems: Review Of Systems: See Below General: Reports: Chills, Malaise, Weakness HEENT: Reports: Sinus Congestion Pulmonary: Reports: Shortness of Breath, Cough, Sputum. Denies: Hemoptysis Cardiovascular: Reports: No Symptoms Gastrointestinal: Reports: No Symptoms Genitourinary: Reports: Incontinence. Denies: Dysuria, Frequency, Burning, Pain Musculoskeletal: Reports: No Symptoms Skin: Reports: Other (He has some sores on his back.) Psychiatric: Reports: No Symptoms Neurological: Reports: No Symptoms Hematologic/Lymphatic: Reports: No Symptoms Immunologic: Reports: No Symptoms Exam - Exam Exam: See Below - Vital Signs Vital Signs: Last Vital Signs Temp 100 F 12/30/17 15:26 Pulse 86 12/30/17 15:26 Resp 18 12/30/17 15:26 BP 99/63 12/30/17 15:26 Pulse Ox 93 L 12/30/17 15:26 Weight: 114 lb - Exam Quality Assessment: Supplemental Oxygen General: Alert, Oriented, Cooperative HEENT: Hearing Intact, TMs Clear, Abnormal Pupils, Scleral Icterus Neck: Supple, Trachea Midline. No: Carotid Bruit, JVD Lungs: Decreased Breath Sounds. No: Crackles, Rales, Rhonchi, Wheezing Cardiovascular: Other (Not able to hear heart tones over his breathing.) GI/Abdominal Exam: Normal Bowel Sounds, Soft, Non-Tender, No Organomegaly, No Distention, No Abnormal Bruit, No Mass Back Exam: Normal Inspection, Full Range of Motion Extremities: Normal Range of Motion, Non-Tender, No Pedal Edema Skin: Warm, Dry, Intact, Other (3 sores on his back.) Neurological: Normal Speech, Normal Tone Neuro Extensive - Mental Status: Alert, Oriented x3, Normal Mood/Affect, Normal Cognition Neuro Extensive - Motor, Sensory, Reflexes: Other (Gait not tested.) Psychiatric: Alert, Normal Affect, Normal Mood - Patient Data Result Diagrams: 12/30/17 14:05 12/30/17 14:05 *Q Meaningful Use (ADM) - VTE *Q VTE Criteria *Q: - Stroke *Q Stroke Criteria *Q: - AMI *Q AMI Criteria *Q: - Problem List (1) Upper respiratory tract infection SNOMED Code(s): 61433717 ICD Code: J06.9 - ACUTE UPPER RESPIRATORY INFECTION, UNSPECIFIED Status: Acute Current Visit: Yes (2) COPD exacerbation SNOMED Code(s): 029328194360410 ICD Code: J44.1 - CHRONIC OBSTRUCTIVE PULMONARY DISEASE W (ACUTE) EXACERBATION Status: Acute Current Visit: No (3) Afib SNOMED Code(s): 11595663 ICD Code: I48.91 - UNSPECIFIED ATRIAL FIBRILLATION Status: Chronic Current Visit: No Qualifiers: Problem List Initiated/Reviewed/Updated: Yes Orders Last 24hrs: Active Orders 24 hr Category Date Time Status Patient Status [ADT] Routine ADT 12/30/17 16:54 Ordered Cardiac Monitoring [RC] INTERMITTENT Care 12/30/17 16:56 Ordered Height and Weight [RC] DAILY Care 12/30/17 16:53 Ordered Intake and Output [RC] QSHIFT Care 12/30/17 16:56 Ordered Oxygen Therapy [RC] PRN Care 12/30/17 16:54 Ordered Pulse Oximetry [RC] PRN Care 12/30/17 16:56 Ordered Up With Assistance [RC] ASDIRECTED Care 12/30/17 16:53 Ordered VTE/DVT Education [RC] Per Unit Routine Care 12/30/17 16:54 Ordered Vital Signs [RC] Q4H Care 12/30/17 16:54 Ordered OT Evaluation and Treatment [CONS] Routine Cons 12/30/17 16:53 Ordered PT Evaluation and Treatment [CONS] Routine Cons 12/30/17 16:53 Ordered Regular Diet [DIET] Diet 12/30/17 Dinner Ordered BLOOD GAS ARTERIAL [BG] Routine Lab 12/30/17 16:53 Ordered CBC WITH AUTO DIFF [HEME] AM Lab 12/31/17 05:11 Ordered COMPREHENSIVE METABOLIC PN,CMP [CHEM] AM Lab 12/31/17 05:11 Ordered CULTURE BLOOD [BC] Urgent Lab 12/30/17 16:55 Ordered CULTURE BLOOD [BC] Urgent Lab 12/30/17 16:55 Ordered CULTURE SPUTUM + SMEAR [RM] Routine Lab 12/30/17 16:53 Uncollected INFLUENZA A+B AG SCREEN [RM] Routine Lab 12/30/17 16:53 Uncollected Azithromycin [Zithromax] 500 mg Med 12/30/17 17:00 Ordered Sodium Chloride 0.9% [Normal Saline] 250 ml IV Q24H Enoxaparin [Lovenox] Med 12/30/17 17:00 Ordered 30 mg SUBCUT Q24H Sodium Chloride 0.9% [Saline Flush] Med 12/30/17 16:53 Ordered 10 ml FLUSH ASDIRECTED PRN cefTRIAXone [Rocephin] 1,000 mg Med 12/30/17 17:00 Ordered Sodium Chloride 0.9% [Normal Saline] 50 ml IV Q24H Blood Culture x2 Reflex Set [OM.PC] Urgent Oth 12/30/17 16:53 Ordered Give supplemental Oxygen PRN [COMM] Routine Oth 12/30/17 16:53 Ordered Peripheral IV Insertion Adult [OM.PC] Routine Oth 12/30/17 16:53 Ordered Peripheral IV Insertion Adult [OM.PC] Urgent Oth 12/30/17 16:53 Ordered Sequential Compression Device [OM.PC] Per Unit Routine Oth 12/30/17 16:56 Ordered Resuscitation Status Routine Resus Stat 12/30/17 16:53 Ordered Medication Orders Albuterol/Ipratropium (Duoneb 3.0-0.5 Mg/3 Ml) 3 ml NEB Q4H PRN PRN Reason: Shortness of Breath Enoxaparin Sodium (Lovenox) 30 mg SUBCUT Q24H [facility] Vancomycin HCl 0.75 gm/ Sodium (Chloride) 250 mls @ 167 mls/hr IV Q24H [facility] Last Admin: 12/30/17 15:18 Dose: 167 mls/hr Piperacillin Sod/Tazobactam (Sod 3.375 gm/ Sodium Chloride) 50 mls @ 100 mls/ hr IV Q6H [facility] Last Admin: 12/30/17 14:24 Dose: 100 mls/hr Sodium Chloride (Normal Saline) 1,000 mls @ 999 mls/hr IV ASDIRECTED [facility] Last Admin: 12/30/17 14:11 Dose: 999 mls/hr Ceftriaxone Sodium 1,000 mg/ (Sodium Chloride) 50 mls @ 100 mls/hr IV Q24H [facility] Azithromycin 500 mg/ Sodium (Chloride) 250 mls @ 250 mls/hr IV Q24H [facility] Morphine Sulfate (Morphine) 2 mg IVPUSH Q1H PRN PRN Reason: Shortness of Breath Sodium Chloride (Saline Flush) 10 ml FLUSH ASDIRECTED PRN PRN Reason: Keep Vein Open Assessment/Plan Comment:: 1. Admit to inpatient. 2. VTE prophylaxis 3. X-ray was very rotated. This patient may have a pneumonia but I do not see a he has some starting Rocephin and Zithromax plus blood cultures and sputum cultures. 4. Normal saline 100 mL an hour. 5. Up with assist. 6. Regular medications as appropriate 7. Discussed living will and he wants to be a DNR. 8. EKG shows atrial fibrillation and normal rate. 9. ABGs 10. DuoNeb's every 4 hours and when necessary. 11. O2 to keep sats between 88 and 92%.
[2017-12-30] MEDS ORDERED: Acetaminophen 500 MG Tab PO PRN (17:07)
[2017-12-30] MEDS ORDERED: Calcium Carbonate 500 MG Tab.Chew PO PRN (17:07)
[2017-12-30] MEDS ORDERED: Azithromycin 500 MG Vial ONE (18:13)
[2017-12-30] MEDS: methylPREDNISolone Sodium Succinate 125 MG/2 ML SDV IV SCH (18:33)
[2017-12-30] MEDS: Azithromycin 500 MG in Sodium Chloride 0.9% 250 ML IV SCH (18:43)
[2017-12-30] MEDS: Dicyclomine 10 MG Cap PO SCH ×2 (18:53→21:04)
[2017-12-30] MEDS ORDERED: cefTRIAXone 1,000 MG VIAL IV SCH (19:30)
[2017-12-30] MEDS: Sodium Chloride 0.9% 10 ML Syringe FLUSH PRN (19:57)
[2017-12-30] MEDS: Albuterol/Ipratropium 3.0-0.5 MG/3 ML Neb Soln NEB SCH (20:08)
[2017-12-30] MEDS: atorvaSTATin 20 MG Tab PO SCH (20:35)
[2017-12-30] MEDS: Mirtazapine 15 MG Tab PO SCH (20:36)
[2017-12-30] MEDS: Metoprolol Tartrate 25 MG Tab PO SCH (20:41)
[2017-12-30] MEDS ORDERED: Apixaban 2.5 MG Tab PO SCH (21:00)
[2017-12-30] MEDS ORDERED: Oseltamivir 75 MG Cap PO SCH (21:00)
[2017-12-30] MEDS ORDERED: Oseltamivir 30 MG Cap PO SCH (21:06)
[2017-12-30] MEDS: Apixaban 5 MG Tab PO SCH (22:14)
[2017-12-30] MEDS: Oseltamivir 30 MG Cap PO SCH (22:26)
[2017-12-31] MEDS: Albuterol/Ipratropium 3.0-0.5 MG/3 ML Neb Soln NEB SCH ×6 (00:31→20:45)
[2017-12-31] MEDS: methylPREDNISolone Sodium Succinate 125 MG/2 ML SDV IV SCH ×3 (02:15→18:19)
[2017-12-31] MEDS: Piperacillin/Tazobactam 3.375 GM in Sodium Chloride 0.9% 50 ML IV SCH ×3 (02:16→13:47)
[2017-12-31] MEDS: Sodium Chloride 0.9% 1,000 ML IV SCH ×3 (05:04→18:02)
[2017-12-31] MEDS: Dicyclomine 10 MG Cap PO SCH ×4 (07:07→20:41)
[2017-12-31] MEDS: Loratadine 10 MG Tab PO SCH (08:36)
[2017-12-31] MEDS: Aspirin 81 MG Tab.Chew PO SCH (08:36)
[2017-12-31] MEDS: Metoprolol Tartrate 25 MG Tab PO SCH ×2 (08:37→20:42)
[2017-12-31] MEDS: Oxybutynin 5 MG Tab.ER PO SCH (08:38)
[2017-12-31] MEDS: Pantoprazole 40 MG Tab.CR PO SCH (08:39)
[2017-12-31] MEDS: Multivitamin Tab PO SCH (08:40)
[2017-12-31] MEDS: Sertraline 50 MG Tab PO SCH (08:41)
[2017-12-31] MEDS: Oseltamivir 30 MG Cap PO SCH ×2 (08:41→20:44)
[2017-12-31] MEDS ORDERED: Ferrous Gluconate 324 MG Tab PO SCH (09:00)
[2017-12-31] MEDS: Apixaban 5 MG Tab PO SCH ×2 (09:19→21:07)
--- NOTE | 2017-12-31 10:02 | PCM.PN ---
- General Info Date of Service: 12/31/17 Admission Dx/Problem (Free Text): Patient states he feels better today. He is breathing better. Still has a cough. Denies fevers or chills. The nurses stated his atrial fib went into sinus rhythm last night. He denies dysuria, pyuria. He is incontinent of urine normally. - Patient Data Vitals - Most Recent: Last Vital Signs Temp 98.5 F 12/31/17 08:00 Pulse 76 12/31/17 08:37 Resp 18 12/31/17 08:00 BP 132/75 12/31/17 08:37 Pulse Ox 93 L 12/31/17 08:00 Weight - Most Recent: 114 lb 6 oz I&O - Last 24 Hours: Intake & Output 12/30/17 12/31/17 12/31/17 22:59 06:59 14:59 Intake Total 1181 785 Balance 1181 785 Lab Results Last 24 Hours: Laboratory Results - last 24 hr 12/30/17 12/31/17 12/31/17 Range/Units 18:40 06:18 06:18 WBC 3.1 L (4.5-12.0) X10-3/uL RBC 3.38 L (4.30-5.75) x10(6)uL Hgb 10.1 L (11.5-15.5) g/dL Hct 30.4 (30.0-51.3) % MCV 89.9 (80-96) fL MCH 30.0 (27.7-33.6) pg MCHC 33.3 (32.2-35.4) g/dL RDW 13.2 (11.5-15.5) % Plt Count 142 (125-369) X10(3)uL MPV 8.2 (7.4-10.4) fL Add Manual Diff Yes Neutrophils % (Manual) 91 H (46-82) % Band Neutrophils % 1 (0-6) % Lymphocytes % (Manual) 6 L (13-37) % Monocytes % (Manual) 2 L (4-12) % Sodium 134 L (135-145) mmol/L Potassium 4.0 (3.5-5.3) mmol/L Chloride 101 (100-110) mmol/L Carbon Dioxide 21 (21-32) mmol/L BUN 26 H (7-18) mg/dL Creatinine 1.2 (0.70-1.30) mg/dL Est Cr Clr Drug Dosing 39.63 mL/min Estimated GFR (MDRD) 59 L (>60) BUN/Creatinine Ratio 21.7 H (9-20) Glucose 184 H D (80-116) mg/dL Calcium 8.0 L (8.6-10.2) mg/dL Total Bilirubin 0.2 (0.1-1.3) mg/dL AST 29 H (5-25) IU/L ALT 19 (12-36) U/L Alkaline Phosphatase 66 (56-112) IU/L Total Protein 5.5 L (6.0-8.0) g/dL Albumin 2.6 L (3.2-4.6) g/dL Globulin 2.9 g/dL Albumin/Globulin Ratio 0.9 Urine Color Yellow (YELLOW) Urine Appearance Cloudy (CLEAR) Urine pH 6.0 (5.0-6.5) Ur Specific [place] 1.015 (1.010-1.025) Urine Protein 30 H (NEGATIVE) mg/dL Urine Glucose (UA) Normal (NEGATIVE) mg/dL Urine Ketones 15 H (NEGATIVE) mg/dL Urine Occult Blood Moderate H (NEGATIVE) Urine Nitrite Negative (NEGATIVE) Urine Bilirubin Negative (NEGATIVE) Urine Urobilinogen Normal (NEGATIVE) mg/dL Ur Leukocyte Esterase Large H (NEGATIVE) Urine RBC 5-10 (0) Urine WBC 75-100 H (0) Ur Squamous Epith Cells Occasional (NS,R,O) Urine Bacteria Many H (NS) Vasquez Results Last 24 Hours: Microbiology 12/30/17 18:40 Influenza Type A Antigen Screen - Final Nasopharyngeal Swab - Nare, Left Positive Influenza A Ag Influenza Type B Antigen Screen - Final NEGATIVE INFLUENZA B VIRUS AG Med Orders - Current: Current Medications Acetaminophen (Tylenol Extra Strength) 1,000 mg PO TID PRN PRN Reason: Pain/Fever Albuterol/Ipratropium (Duoneb 3.0-0.5 Mg/3 Ml) 3 ml NEB Q4H [facility] Last Admin: 12/31/17 07:33 Dose: 3 ml Albuterol/Ipratropium (Duoneb 3.0-0.5 Mg/3 Ml) 3 ml NEB Q2H PRN PRN Reason: Shortness of Breath Apixaban (Eliquis) 2.5 mg PO BID [facility] Last Admin: 12/31/17 09:19 Dose: 2.5 mg Aspirin (Aspirin) 81 mg PO DAILY [facility] Last Admin: 12/31/17 08:36 Dose: 81 mg Atorvastatin Calcium (Lipitor) 20 mg PO BEDTIME [facility] Last Admin: 12/30/17 20:35 Dose: 20 mg Calcium Carbonate/Glycine (Tums) 750 mg PO DAILY PRN PRN Reason: Indigestion Last Admin: 12/30/17 20:42 Dose: 750 mg Ceftriaxone Sodium (Rocephin) 1,000 mg IV DAILY@1600 [facility] Dicyclomine HCl (Bentyl) 10 mg PO QIDACANDBED [facility] Last Admin: 12/31/17 07:07 Dose: 10 mg Ferrous Gluconate (Ferrous Gluconate) 324 mg PO DAILY [facility] Vancomycin HCl 0.75 gm/ Sodium (Chloride) 250 mls @ 167 mls/hr IV Q24H [facility] Last Admin: 12/30/17 15:18 Dose: 167 mls/hr Piperacillin Sod/Tazobactam (Sod 3.375 gm/ Sodium Chloride) 50 mls @ 100 mls/ hr IV Q6H [facility] Last Admin: 12/31/17 08:34 Dose: 100 mls/hr Azithromycin 500 mg/ Sodium (Chloride) 250 mls @ 250 mls/hr IV Q24H [facility] Last Admin: 12/30/17 18:43 Dose: 250 mls/hr Sodium Chloride (Normal Saline) 1,000 mls @ 100 mls/hr IV ASDIRECTED [facility] Last Admin: 12/31/17 05:04 Dose: 100 mls/hr Levothyroxine Sodium (Levothyroxine) 87.5 mcg PO ACBRK [facility] Last Admin: 12/31/17 07:07 Dose: 87.5 mcg Loratadine (Claritin) 10 mg PO DAILY [facility] Last Admin: 12/31/17 08:36 Dose: 10 mg Methylprednisolone Sodium Succinate (Solu-Medrol) 125 mg IV Q8H [facility] Last Admin: 12/31/17 02:15 Dose: 125 mg Metoprolol Tartrate (Lopressor) 12.5 mg PO BID [facility] Last Admin: 12/31/17 08:37 Dose: 12.5 mg Mirtazapine (Remeron) 45 mg PO BEDTIME [facility] Last Admin: 12/30/17 20:36 Dose: 45 mg Morphine Sulfate (Morphine) 2 mg IVPUSH Q1H PRN PRN Reason: Shortness of Breath Multivitamins/Minerals/Vitamin C (Tab-A-Yaquelin) 1 tab PO DAILY [facility] Last Admin: 12/31/17 08:40 Dose: 1 tab Oseltamivir Phosphate (Tamiflu) 30 mg PO BID [facility] Stop: 01/04/18 09:01 Last Admin: 12/31/17 08:41 Dose: 30 mg Oxybutynin Chloride (Oxybutynin Er) 15 mg PO DAILY [facility] Last Admin: 12/31/17 08:38 Dose: 15 mg Pantoprazole Sodium (Protonix) 40 mg PO DAILY [facility] Last Admin: 12/31/17 08:39 Dose: 40 mg Senna/Docusate Sodium (Senna Plus) 1 tab PO BID [facility] Last Admin: 12/31/17 08:40 Dose: 1 tab Sertraline HCl (Zoloft) 150 mg PO DAILY [facility] Last Admin: 12/31/17 08:41 Dose: 150 mg Sodium Chloride (Saline Flush) 10 ml FLUSH ASDIRECTED PRN PRN Reason: Keep Vein Open Last Admin: 12/30/17 19:57 Dose: 10 ml Discontinued Medications Albuterol/Ipratropium (Duoneb 3.0-0.5 Mg/3 Ml) 3 ml NEB Q4H PRN PRN Reason: Shortness of Breath Last Admin: 12/30/17 19:01 Dose: 3 ml Albuterol/Ipratropium (Duoneb 3.0-0.5 Mg/3 Ml) Confirm Administered Dose 3 ml .ROUTE .STK-MED ONE Stop: 12/30/17 14:05 Last Admin: 12/30/17 14:11 Dose: 3 ml Apixaban (Eliquis) 2.5 mg PO BID [facility] Last Admin: 12/30/17 22:10 Dose: Not Given Azithromycin (Zithromax) Confirm Administered Dose 500 mg .ROUTE .STK-MED ONE Stop: 12/30/17 18:14 Last Admin: 12/30/17 18:53 Dose: Not Given Ceftriaxone Sodium (Rocephin) 1,000 mg IV Q24H [facility] Stop: 12/30/17 23:59 Last Admin: 12/30/17 19:49 Dose: 1,000 mg Enoxaparin Sodium (Lovenox) 30 mg SUBCUT Q24H [facility] Last Admin: 12/30/17 18:51 Dose: Not Given Piperacillin Sod/Tazobactam (Sod 2.25 gm/ Sodium Chloride) 50 mls @ 100 mls/hr IV Q6H [facility] Last Admin: 12/30/17 18:51 Dose: Not Given Sodium Chloride (Normal Saline) 1,000 mls @ 999 mls/hr IV ASDIRECTED [facility] Last Admin: 12/30/17 14:11 Dose: 999 mls/hr Ceftriaxone Sodium 1,000 mg/ (Sodium Chloride) 50 mls @ 100 mls/hr IV Q24H [facility] Last Admin: 12/30/17 20:09 Dose: Not Given Morphine Sulfate (Morphine) 2 mg IVPUSH Q1H [facility] Last Admin: 12/30/17 18:52 Dose: Not Given Oseltamivir Phosphate (Tamiflu) 75 mg PO BID [facility] Last Admin: 12/30/17 22:10 Dose: Not Given Oseltamivir Phosphate (Tamiflu) 30 mg PO BID [facility] Stop: 01/04/18 09:01 - Exam General: Alert, Oriented, Cooperative Neck: Supple Lungs: Normal Respiratory Effort, Crackles Cardiovascular: Regular Rate, Regular Rhythm, No Murmurs GI/Abdominal Exam: Normal Bowel Sounds, Non-Tender Psy/Mental Status: Alert, Normal Affect, Normal Mood - Problem List & Annotations (1) Upper respiratory tract infection SNOMED Code(s): 46311789 Code(s): J06.9 - ACUTE UPPER RESPIRATORY INFECTION, UNSPECIFIED Status: Acute Current Visit: Yes (2) COPD exacerbation SNOMED Code(s): 593140319538197 Code(s): J44.1 - CHRONIC OBSTRUCTIVE PULMONARY DISEASE W (ACUTE) EXACERBATION Status: Acute Current Visit: No (3) Afib SNOMED Code(s): 47801804 Code(s): I48.91 - UNSPECIFIED ATRIAL FIBRILLATION Status: Chronic Current Visit: No Qualifiers: - Problem List Review Problem List Initiated/Reviewed/Updated: Yes - My Orders Last 24 Hours: My Active Orders 12/30/17 17:07 Acetaminophen [Tylenol Extra Strength] 1,000 mg PO TID PRN Calcium Carbonate [Tums] 750 mg PO DAILY PRN 12/30/17 17:30 Dicyclomine [Bentyl] 10 mg PO QIDACANDBED 12/30/17 18:00 methylPREDNISolone Sod Succ [Solu-MEDROL] 125 mg IV Q8H 12/30/17 18:30 Sodium Chloride 0.9% [Normal Saline] 1,000 ml IV ASDIRECTED 12/30/17 18:40 CULTURE URINE [RM] Routine 12/30/17 18:54 RT Aerosol Therapy [RC] ASDIRECTED 12/30/17 19:40 Albuterol/Ipratropium [DuoNeb 3.0-0.5 MG/3 ML] 3 ml NEB Q2H PRN 12/30/17 20:00 Albuterol/Ipratropium [DuoNeb 3.0-0.5 MG/3 ML] 3 ml NEB Q4H 12/30/17 21:00 Docusate Sodium/Sennosides [Senna Plus] 1 tab PO BID Metoprolol Tartrate [Lopressor] 12.5 mg PO BID Mirtazapine [Remeron] 45 mg PO BEDTIME atorvaSTATin [Lipitor] 20 mg PO BEDTIME 12/30/17 21:15 Apixaban [Eliquis] 2.5 mg PO BID 12/31/17 07:30 Levothyroxine 87.5 mcg PO ACBRK 12/31/17 09:00 Aspirin 81 mg PO DAILY Ferrous Gluconate 324 mg PO DAILY Loratadine [Claritin] 10 mg PO DAILY Multivitamins [Tab-A-Yaquelin] 1 tab PO DAILY Oxybutynin [Oxybutynin ER] 15 mg PO DAILY Pantoprazole [ProTONIX] 40 mg PO DAILY Sertraline [Zoloft] 150 mg PO DAILY 12/31/17 09:59 CXR [Chest 2V] [CR] Routine 12/31/17 16:00 cefTRIAXone [Rocephin] 1,000 mg IV DAILY@1600 - Plan Plan:: 1. DC telemetry 2. Urines positive with antibodies will cover this. Wait for culture. 3. Continue current care.
[2017-12-31] MEDS: Ferrous Sulfate 325 MG Tab PO SCH (11:11)
[2017-12-31] MEDS: cefTRIAXone 1,000 MG VIAL IV SCH (16:29)
[2017-12-31] MEDS: Azithromycin 500 MG Vial ONE ×2 (18:30→18:40)
[2017-12-31] MEDS: Azithromycin 500 MG in Sodium Chloride 0.9% 250 ML IV SCH (18:41)
[2017-12-31] MEDS: atorvaSTATin 20 MG Tab PO SCH (20:43)
[2017-12-31] MEDS: Mirtazapine 15 MG Tab PO SCH (20:44)
[2018-01-01] MEDS: Albuterol/Ipratropium 3.0-0.5 MG/3 ML Neb Soln NEB SCH ×6 (00:35→20:21)
[2018-01-01] MEDS: methylPREDNISolone Sodium Succinate 125 MG/2 ML SDV IV SCH ×3 (02:09→18:23)
[2018-01-01] MEDS: Sodium Chloride 0.9% 1,000 ML IV SCH (05:22)
[2018-01-01] MEDS: Dicyclomine 10 MG Cap PO SCH ×4 (06:45→20:21)
--- NOTE | 2018-01-01 08:09 | PCM.PN ---
- General Info Date of Service: 01/01/18 Admission Dx/Problem (Free Text): Patient states she's feeling much better. He denies cough, shortness of breath, fevers, chills, aches. Yesterday he did not appetite. He's not sure about today says he hasn't tried breakfast yet. Nurses report that he continually dribbles urine. They're wondering if a condom catheter may be something I would help him. He has a history of chronic incontinence. - Patient Data Vitals - Most Recent: Last Vital Signs Temp 97.8 F 01/01/18 03:56 Pulse 80 01/01/18 07:33 Resp 22 H 01/01/18 03:56 BP 131/72 01/01/18 03:56 Pulse Ox 95 01/01/18 07:27 Weight - Most Recent: 117 lb 7 oz I&O - Last 24 Hours: Intake & Output 12/31/17 01/01/18 01/01/18 22:59 06:59 14:59 Intake Total 1218 630 Balance 1218 630 Lab Results Last 24 Hours: Laboratory Results - last 24 hr 01/01/18 01/01/18 Range/Units 06:20 06:20 WBC 3.6 L (4.5-12.0) X10-3/uL RBC 3.47 L (4.30-5.75) x10(6)uL Hgb 10.2 L (11.5-15.5) g/dL Hct 31.1 (30.0-51.3) % MCV 89.7 (80-96) fL MCH 29.3 (27.7-33.6) pg MCHC 32.7 (32.2-35.4) g/dL RDW 13.4 (11.5-15.5) % Plt Count 138 (125-369) X10(3)uL MPV 8.3 (7.4-10.4) fL Add Manual Diff Yes Neutrophils % (Manual) 85 H (46-82) % Lymphocytes % (Manual) 11 L (13-37) % Monocytes % (Manual) 4 (4-12) % Sodium 141 (135-145) mmol/L Potassium 3.8 (3.5-5.3) mmol/L Chloride 108 D (100-110) mmol/L Carbon Dioxide 23 (21-32) mmol/L BUN 23 H (7-18) mg/dL Creatinine 1.0 (0.70-1.30) mg/dL Est Cr Clr Drug Dosing 47.56 mL/min Estimated GFR (MDRD) > 60 (>60) BUN/Creatinine Ratio 23.0 H (9-20) Glucose 134 H (80-116) mg/dL Calcium 8.1 L (8.6-10.2) mg/dL Vasquez Results Last 24 Hours: Microbiology 12/30/17 18:40 Urine Culture - Preliminary Urine, Bladder NO GROWTH AFTER 1 DAY Med Orders - Current: Current Medications Acetaminophen (Tylenol Extra Strength) 1,000 mg PO TID PRN PRN Reason: Pain/Fever Albuterol/Ipratropium (Duoneb 3.0-0.5 Mg/3 Ml) 3 ml NEB Q4H [facility] Last Admin: 01/01/18 07:24 Dose: 3 ml Albuterol/Ipratropium (Duoneb 3.0-0.5 Mg/3 Ml) 3 ml NEB Q2H PRN PRN Reason: Shortness of Breath Apixaban (Eliquis) 2.5 mg PO BID [facility] Last Admin: 12/31/17 21:07 Dose: 2.5 mg Aspirin (Aspirin) 81 mg PO DAILY [facility] Last Admin: 12/31/17 08:36 Dose: 81 mg Atorvastatin Calcium (Lipitor) 20 mg PO BEDTIME [facility] Last Admin: 12/31/17 20:43 Dose: 20 mg Calcium Carbonate/Glycine (Tums) 750 mg PO DAILY PRN PRN Reason: Indigestion Last Admin: 12/30/17 20:42 Dose: 750 mg Ceftriaxone Sodium (Rocephin) 1,000 mg IV DAILY@1600 [facility] Last Admin: 12/31/17 16:29 Dose: 1,000 mg Dicyclomine HCl (Bentyl) 10 mg PO QIDACANDBED [facility] Last Admin: 01/01/18 06:45 Dose: 10 mg Ferrous Sulfate (Ferrous Sulfate) 325 mg PO WITHBREAKFAST [facility] Last Admin: 12/31/17 11:11 Dose: Not Given Azithromycin 500 mg/ Sodium (Chloride) 250 mls @ 250 mls/hr IV Q24H [facility] Last Admin: 12/31/17 18:41 Dose: 250 mls/hr Sodium Chloride (Normal Saline) 1,000 mls @ 100 mls/hr IV ASDIRECTED [facility] Last Admin: 01/01/18 05:22 Dose: 100 mls/hr Levothyroxine Sodium (Levothyroxine) 87.5 mcg PO ACBRK [facility] Last Admin: 01/01/18 06:45 Dose: 87.5 mcg Loratadine (Claritin) 10 mg PO DAILY [facility] Last Admin: 12/31/17 08:36 Dose: 10 mg Methylprednisolone Sodium Succinate (Solu-Medrol) 125 mg IV Q8H [facility] Last Admin: 01/01/18 02:09 Dose: 125 mg Metoprolol Tartrate (Lopressor) 12.5 mg PO BID [facility] Last Admin: 12/31/17 20:42 Dose: 12.5 mg Mirtazapine (Remeron) 45 mg PO BEDTIME [facility] Last Admin: 12/31/17 20:44 Dose: 45 mg Morphine Sulfate (Morphine) 2 mg IVPUSH Q1H PRN PRN Reason: Shortness of Breath Multivitamins/Minerals/Vitamin C (Tab-A-Yaquelin) 1 tab PO DAILY [facility] Last Admin: 12/31/17 08:40 Dose: 1 tab Oseltamivir Phosphate (Tamiflu) 30 mg PO BID [facility] Stop: 01/04/18 09:01 Last Admin: 12/31/17 20:44 Dose: 30 mg Oxybutynin Chloride (Oxybutynin Er) 15 mg PO DAILY [facility] Last Admin: 12/31/17 08:38 Dose: 15 mg Pantoprazole Sodium (Protonix) 40 mg PO DAILY [facility] Last Admin: 12/31/17 08:39 Dose: 40 mg Senna/Docusate Sodium (Senna Plus) 1 tab PO BID [facility] Last Admin: 12/31/17 20:42 Dose: 1 tab Sertraline HCl (Zoloft) 150 mg PO DAILY [facility] Last Admin: 12/31/17 08:41 Dose: 150 mg Sodium Chloride (Saline Flush) 10 ml FLUSH ASDIRECTED PRN PRN Reason: Keep Vein Open Last Admin: 12/30/17 19:57 Dose: 10 ml Discontinued Medications Albuterol/Ipratropium (Duoneb 3.0-0.5 Mg/3 Ml) 3 ml NEB Q4H PRN PRN Reason: Shortness of Breath Last Admin: 12/30/17 19:01 Dose: 3 ml Albuterol/Ipratropium (Duoneb 3.0-0.5 Mg/3 Ml) Confirm Administered Dose 3 ml .ROUTE .[facility] ONE Stop: 12/30/17 14:05 Last Admin: 12/30/17 14:11 Dose: 3 ml Apixaban (Eliquis) 2.5 mg PO BID [facility] Last Admin: 12/30/17 22:10 Dose: Not Given Azithromycin (Zithromax) Confirm Administered Dose 500 mg .ROUTE .[facility] Stop: 12/30/17 18:14 Last Admin: 12/30/17 18:53 Dose: Not Given Azithromycin (Zithromax) Confirm Administered Dose 500 mg .ROUTE .[facility] Stop: 12/31/17 18:16 Last Admin: 12/31/17 18:40 Dose: Not Given Ceftriaxone Sodium (Rocephin) 1,000 mg IV Q24H [facility] Stop: 12/30/17 23:59 Last Admin: 12/30/17 19:49 Dose: 1,000 mg Enoxaparin Sodium (Lovenox) 30 mg SUBCUT Q24H [facility] Last Admin: 12/30/17 18:51 Dose: Not Given Ferrous Gluconate (Ferrous Gluconate) 324 mg PO DAILY [facility] Last Admin: 12/31/17 11:22 Dose: Not Given Piperacillin Sod/Tazobactam (Sod 2.25 gm/ Sodium Chloride) 50 mls @ 100 mls/hr IV Q6H [facility] Last Admin: 12/30/17 18:51 Dose: Not Given Vancomycin HCl 0.75 gm/ Sodium (Chloride) 250 mls @ 167 mls/hr IV Q24H [facility] Last Admin: 12/31/17 14:29 Dose: 167 mls/hr Piperacillin Sod/Tazobactam (Sod 3.375 gm/ Sodium Chloride) 50 mls @ 100 mls/ hr IV Q6H [facility] Last Admin: 12/31/17 13:47 Dose: 100 mls/hr Sodium Chloride (Normal Saline) 1,000 mls @ 999 mls/hr IV ASDIRECTED [facility] Last Admin: 12/30/17 14:11 Dose: 999 mls/hr Ceftriaxone Sodium 1,000 mg/ (Sodium Chloride) 50 mls @ 100 mls/hr IV Q24H [facility] Last Admin: 12/30/17 20:09 Dose: Not Given Morphine Sulfate (Morphine) 2 mg IVPUSH Q1H [facility] Last Admin: 12/30/17 18:52 Dose: Not Given Oseltamivir Phosphate (Tamiflu) 75 mg PO BID [facility] Last Admin: 12/30/17 22:10 Dose: Not Given Oseltamivir Phosphate (Tamiflu) 30 mg PO BID [facility] Stop: 01/04/18 09:01 - Exam General: Alert, Oriented, Cooperative Lungs: Clear to Auscultation, Normal Respiratory Effort. No: Rales, Rhonchi Cardiovascular: Regular Rate, Regular Rhythm, No Murmurs Extremities: No Pedal Edema Skin: Warm, Dry, Intact Psy/Mental Status: Alert, Normal Affect, Normal Mood - Problem List & Annotations (1) Upper respiratory tract infection SNOMED Code(s): 12200214 Code(s): J06.9 - ACUTE UPPER RESPIRATORY INFECTION, UNSPECIFIED Status: Acute Current Visit: Yes (2) COPD exacerbation SNOMED Code(s): 302698510579796 Code(s): J44.1 - CHRONIC OBSTRUCTIVE PULMONARY DISEASE W (ACUTE) EXACERBATION Status: Acute Current Visit: No (3) Afib SNOMED Code(s): 18183295 Code(s): I48.91 - UNSPECIFIED ATRIAL FIBRILLATION Status: Chronic Current Visit: No Qualifiers: Atrial fibrillation type: paroxysmal (4) Hyponatremia SNOMED Code(s): 31149023 Code(s): E87.1 - HYPO-OSMOLALITY AND HYPONATREMIA Status: Acute Current Visit: Yes (5) Palliative care status SNOMED Code(s): 960041090 Code(s): Z51.5 - ENCOUNTER FOR PALLIATIVE CARE Status: Acute Current Visit: Yes (6) Incontinence SNOMED Code(s): 62009517 Code(s): R32 - UNSPECIFIED URINARY INCONTINENCE Status: Acute Current Visit: Yes (7) UTI (urinary tract infection) SNOMED Code(s): 01167730 Code(s): N39.0 - URINARY TRACT INFECTION, SITE NOT SPECIFIED Status: Acute Current Visit: Yes (8) Influenza A SNOMED Code(s): 288346601 Code(s): J10.1 - FLU DUE TO OTH IDENT INFLUENZA VIRUS W OTH RESP MANIFEST Status: Acute Current Visit: Yes - Problem List Review Problem List Initiated/Reviewed/Updated: Yes - My Orders Last 24 Hours: My Active Orders 12/31/17 07:30 Levothyroxine 87.5 mcg PO ACBRK 12/31/17 08:00 Ferrous Sulfate 325 mg PO WITHBREAKFAST 12/31/17 09:00 Aspirin 81 mg PO DAILY Loratadine [Claritin] 10 mg PO DAILY Multivitamins [Tab-A-Yaquelin] 1 tab PO DAILY Oxybutynin [Oxybutynin ER] 15 mg PO DAILY Pantoprazole [ProTONIX] 40 mg PO DAILY Sertraline [Zoloft] 150 mg PO DAILY 12/31/17 09:59 CXR [Chest 2V] [CR] Routine 12/31/17 16:00 cefTRIAXone [Rocephin] 1,000 mg IV DAILY@1600 01/01/18 06:00 CXR [Chest 2V] [CR] Routine - Plan Plan:: 1. Chest x-ray 2 views to rule out any pneumonia. His 1 view is very rotated. 2. DC IV fluids and saline lock IV. 3. PT/OT to assess how well he is doing to make sure that if he goes home is not going to fall. 4. Ambulate frequently. 5. Condom catheter 6. Culture results of the urine. 7. Wean O2.
[2018-01-01] MEDS: Ferrous Sulfate 325 MG Tab PO SCH (08:54)
[2018-01-01] MEDS: Aspirin 81 MG Tab.Chew PO SCH (08:54)
[2018-01-01] MEDS: Loratadine 10 MG Tab PO SCH (08:54)
[2018-01-01] MEDS: Metoprolol Tartrate 25 MG Tab PO SCH ×2 (08:55→20:22)
[2018-01-01] MEDS: Apixaban 5 MG Tab PO SCH ×2 (08:55→20:21)
[2018-01-01] MEDS: Oxybutynin 5 MG Tab.ER PO SCH (08:56)
[2018-01-01] MEDS: Pantoprazole 40 MG Tab.CR PO SCH (08:57)
[2018-01-01] MEDS: Sertraline 50 MG Tab PO SCH (08:58)
[2018-01-01] MEDS: Multivitamin Tab PO SCH (08:58)
[2018-01-01] MEDS: Oseltamivir 30 MG Cap PO SCH ×2 (08:58→20:23)
[2018-01-01] MEDS ORDERED: Calcium Carbonate 500 MG Tab.Chew PO PRN (09:00)
[2018-01-01] MEDS ORDERED: Iopamidol 755 Mg/ML 75 ML Bottle IV ONE (11:52)
[2018-01-01] MEDS ORDERED: Diatrizoate Meglumine/Diatrizoate Sodium 37% 30 ML Bottle PO ONE (11:52)
--- NOTE | 2018-01-01 12:31 | CR ---
INDICATION: Fever, cough, shortness of breath. CHEST: An AP upright view of the chest was obtained. The chest was rotated to the left. Moderately large fixed hiatal hernia is now suggested. The heart did not appear grossly enlarged. The aorta is calcified and somewhat tortuous. Findings compatible with COPD are again noted, without a definite active infiltrate or effusion identified. Dextroconvex scoliosis of the mid to lower thoracic spine is noted. Lara rods are noted at the lower thoracic/lumbar level. IMPRESSION: 1. No definite acute process. 2. Probable severe COPD. 3. ASHD. 4. Moderately large fixed hiatal hernia. 5. Scoliosis - post-surgical. 6. No finding to strongly suggest pneumonia is identified, although minimal patchy pneumonia at the left lung base - laterally - cannot be entirely excluded due to some relatively heavy markings in that area and rotation of the chest to the left. When clinically possible, full inspiration PA and lateral views of the chest with good positioning may be helpful. MTDD
--- NOTE | 2018-01-01 14:46 | CR ---
INDICATION: Cough. Question pneumonia. CHEST: Two PA views and a lateral view of the chest 01/01/2018 were compared with 12/30/2017 and again revealed a moderately large fixed hiatal hernia with air-fluid level. The heart did not appear enlarged. The aorta is calcified and moderately tortuous. Diminished bone density is noted, compatible with osteoporosis. Dextroconvex scoliosis of the lower thoracic spine of mild degree is noted. Lara rods are noted extending from the lower thoracic into the lumbar area. A definite active infiltrate or effusion was not seen. However, there is blunting of the left costophrenic angle and posterior sulcus with some heavy markings in that area, raising question of a minimal pneumonia and pleuritis. This should be correlated clinically, however. No gross consolidating pneumonia or significantly large pleural effusion could be identified. Flattened diaphragm leaves, AP diameter prominence, and hyperaeration are all compatible with COPD. IMPRESSION: 1. Possible minimal pneumonia and pleuritis at the left lower lobe - lingula. 2. Moderately large fixed hiatal hernia. 3. ASD aorta. 4. Osteoporosis with scoliosis. 5. COPD. MTDD
--- NOTE | 2018-01-01 15:10 | CT ---
INDICATION: History of bladder CA, right inguinal lymphadenopathy. CT ABDOMEN AND PELVIS WITH CONTRAST: Spiral 2.5-mm axial sections were obtained through the abdomen and pelvis with oral and IV contrast (70 mL Isovue- 370 at 1.8 mL per second), with sagittal and coronal reconstructions, 01/01/2018 , and compared with 12/24/2017 examination. Total Exam DLP = 324.65 mGy-cm. There is either linear atelectasis or possibly a minimal patchy infiltrate in the lingula at the major fissure. Bilateral small pleural effusions are noted, which should be correlated clinically as to etiology. Minimal patchy pneumonia could also be present at the left lower lobe. There does appear to be some calcification in the pleura at the left lung base, which could be on the basis of asbestosis. Otherwise, an active infiltrate or effusion was not suggested. A moderately large fixed hiatal hernia is now seen, which is paraesophageal, as the esophagus is medial and adjacent to the hernia. Coronary artery calcifications are noted. Left atrial enlargement is suggested with mitral valve calcifications. The liver appeared normal except for a small low-density lesion present previously, compatible with a cyst at the posterior aspect of the right lobe, seen on axial image #59. There is question of some sludge in the gallbladder. This should be correlated clinically and could be further evaluated with ultrasound as necessary. The appendix is not visualized, compatible with appendectomy. No definite bowel obstruction or free air was seen. There were a few air-fluid levels, however, which could be on the basis of gastroenteritis or possibly paralytic ileus. There is some gas in the rectum. Small bowel was well filled with contrast. The urinary bladder wall appeared normal to slightly thickened. There are what appear to be phleboliths in the pelvis. Calcifications are noted in the aorta, iliac, superior mesenteric, and right renal arteries. No other mass lesions, organomegaly, or free fluid collections were identified in the abdomen or pelvis. Some limitation in detail is present due to lack of intraperitoneal fat. IMPRESSION: 1. No definite acute abnormality, although air-fluid levels in the bowel raise suspicion for a process such as gastroenteritis or possibly paralytic ileus - correlate clinically. 2. Tiny probable cyst in the right lobe of the liver. 3. ASD. 4. Post-surgical spine with Lara rods and pedicle screws. 5. Question mildly thickened urinary bladder wall which could be on the basis of previous inflammation or cystitis - correlate clinically. 6. Post appendectomy. 7. History of prostate CA in the past with residual prostatic tissue again noted. 8. Moderately large fixed hiatal hernia, a new finding compared with the previous study and appears to be partially paraesophageal. CT PELVIS: Examination of the pelvis was obtained by CT, as noted above, and revealed no definite bowel obstruction or free air. Arterial calcifications are noted. MTDD
--- NOTE | 2018-01-01 15:21 | ER ---
DATE SEEN: 12/30/2017 HISTORY OF PRESENT ILLNESS: This 72-year-old retired man who lives in [facility], comes in because of increasing shortness of breath, elevated temperature of 100.1 today. His oxygen saturation dropped down to 86, and he has been transferred by ambulance to the hospital for further evaluation. PAST MEDICAL HISTORY: Significant for COPD with exacerbation, chronic smoker, hypothyroidism, GERD, prostatism, bladder outlet obstruction with urine loss, and hypertension. PAST SURGICAL HISTORY: Hip surgery, back surgery, and thoracic surgery with cage. ALLERGIES: None. CURRENT MEDICATIONS: 1. Calcium carbonate. 2. Aspirin. 3. Apixaban. 4. Eliquis. 5. DuoNebs. 6. Acetaminophen. 7. Metoprolol tartrate 12.5 mg b.i.d. 8. Loratadine. 9. Levothyroxine 87.5 mcg per day. 10.Ferrous gluconate. 11.Dicyclomine. 12.Oxybutynin chloride 15 mg daily. 13.Omeprazole 40 mg daily. 14.Multivitamins. 15.Mirtazapine 45 mg. 16.Triamcinolone ointment. 17.Tamsulosin-Flomax 0.4 mg. 18.Sennosides. 19.Docusate b.i.d. 20.Atorvastatin 20 mg at bedtime. REVIEW OF SYSTEMS: Negative, except for noted above. HEENT: Denies headache or neck stiffness. Denies sore throat or difficulty swallowing. He is edentulous. CHEST: No chest pain. CV: He has shortness of breath with dyspnea on exertion, gradually progressing and increasing. GI: Denies abdominal pain, nausea, vomiting, diarrhea, or constipation. MUSCULOSKELETAL: He has low backache. EXTREMITIES: Lower extremities, weakness. NEURO: No seizures. No strokes or TIAs. PSYCHIATRIC: Denies depression. BLADDER: He has incontinence, irritable bladder, and prostatism. PHYSICAL EXAMINATION: VITAL SIGNS: Blood pressure 97/75, heart rate 86, respirations 20, oxygen saturation 96% on 2 L nasal cannula, and temperature 37.2 degrees. CONSTITUTIONAL: This asthenic man with marked decreased subcutaneous tissue and muscle mass, is dyspneic with respiratory rate of 30+ per minute. Heart rate increased. Tachycardia. HEENT: The patient wears glasses. He has decreased hearing. Pharynx without abnormality. Mouth, mucosa dry. TMs negative. Has moderate muscle wasting of his face. PERRLA intact. Eyegrounds negative. Pharynx, as noted, mildly dry. Uvula midline. Tongue is midline. NECK: Supple. No bruits. No masses. LUNGS: Decreased air exchange with rales noted in the lungs, bilateral posterior bases. Moderate accessory muscle use. There was about 1 cm jugular venous distention. Moderate tracheal tug and no tracheal deviation. Breath sounds heard bilaterally posterior chest. ABDOMEN: Soft. No guarding. No abdominal discomfort. No megaly or masses. No guarding or rebound. : Prostate enlarged. MUSCULOSKELETAL: No muscle weakness. No loss of symmetry or strength. No pronator drift. Deep tendon reflexes hypoactive, but present in upper extremities and decreased in lower extremities. NEUROLOGIC: Cranial nerves 2 through 12 intact. Oriented x3. Gait not tested. IMAGING: Chest x-ray, hyperaeration, some flattening of the diaphragms, no clear evidence of any infiltrate. ASSESSMENT: 1. Chronic obstructive pulmonary disease with exacerbation with increased respiratory effort, mild jugular venous distention. Probably associated cor pulmonale with also mild pulmonary hypertension. 2. Asthenia secondary to muscle wasting loss because of his marked respiratory effort and accessory muscles of breathing. 3. Hypertension, treated. 4. Allergies. 5. Hypothyroidism, treated. 6. Gastroesophageal reflux disease. 7. Depression. 8. Prostatism. 9. Previous hip surgery. 10.Previous back surgery. 11.Bladder spasm. PLAN: Admit, observe. The patient received vancomycin and Zosyn. The patient lives in an assisted living so he is associated with other older people consequently, perhaps, these medicines are warranted and/or perhaps, if necessary, the medicine can be changed to a different medication. He has done well here. Morphine has made a difference, there is a 50% decrease in his dyspneic. He feels better. His blood culture is pending. The patient's status was discussed with Dr. Haas. He will be admitted for observation and therapeutic intervention of antibiotics. /[id number] [employer]NA [employer]AGE
[2018-01-01] MEDS: cefTRIAXone 1,000 MG VIAL IV SCH (16:58)
[2018-01-01] MEDS: Azithromycin 500 MG in Sodium Chloride 0.9% 250 ML IV SCH (18:34)
[2018-01-01] MEDS: Mirtazapine 15 MG Tab PO SCH (20:22)
[2018-01-01] MEDS: atorvaSTATin 20 MG Tab PO SCH (20:22)
[2018-01-02] MEDS: methylPREDNISolone Sodium Succinate 125 MG/2 ML SDV IV SCH ×2 (02:10→09:44)
[2018-01-02] MEDS: Sodium Chloride 0.9% 10 ML Syringe FLUSH PRN ×2 (02:11→09:45)
[2018-01-02] MEDS: Albuterol/Ipratropium 3.0-0.5 MG/3 ML Neb Soln NEB SCH ×2 (07:16→11:03)
--- NOTE | 2018-01-02 08:04 | PCM.PN ---
- General Info Date of Service: 01/02/18 Admission Dx/Problem (Free Text): Patient without complaints. He has no coughing, fevers, chills. He wants to go home. - Patient Data Vitals - Most Recent: Last Vital Signs Temp 97.9 F 01/02/18 07:35 Pulse 66 01/02/18 07:35 Resp 16 01/02/18 07:35 BP 127/75 01/02/18 07:35 Pulse Ox 90 L 01/02/18 06:00 Weight - Most Recent: 117 lb 4.8 oz I&O - Last 24 Hours: Intake & Output 01/01/18 01/02/18 01/02/18 22:59 06:59 14:59 Intake Total 1060 Balance 1060 Vasquez Results Last 24 Hours: Microbiology 12/30/17 18:40 Urine Culture - Final Urine, Bladder MIXED POSITIVE [facility] DAY 2 Med Orders - Current: Current Medications Acetaminophen (Tylenol Extra Strength) 1,000 mg PO TID PRN PRN Reason: Pain/Fever Albuterol/Ipratropium (Duoneb 3.0-0.5 Mg/3 Ml) 3 ml NEB Q2H PRN PRN Reason: Shortness of Breath Albuterol/Ipratropium (Duoneb 3.0-0.5 Mg/3 Ml) 3 ml NEB QIDRT [facility] Last Admin: 01/02/18 07:16 Dose: 3 ml Apixaban (Eliquis) 2.5 mg PO BID [facility] Last Admin: 01/01/18 20:21 Dose: 2.5 mg Aspirin (Aspirin) 81 mg PO DAILY [facility] Last Admin: 01/01/18 08:54 Dose: 81 mg Atorvastatin Calcium (Lipitor) 20 mg PO BEDTIME [facility] Last Admin: 01/01/18 20:22 Dose: 20 mg Calcium Carbonate/Glycine (Tums) 750 mg PO DAILY PRN PRN Reason: Indigestion Ceftriaxone Sodium (Rocephin) 1,000 mg IV DAILY@1600 [facility] Last Admin: 01/01/18 16:58 Dose: 1,000 mg Dicyclomine HCl (Bentyl) 10 mg PO QIDACANDBED [facility] Last Admin: 01/01/18 20:21 Dose: 10 mg Ferrous Sulfate (Ferrous Sulfate) 325 mg PO WITHBREAKFAST [facility] Last Admin: 01/01/18 08:54 Dose: 325 mg Azithromycin 500 mg/ Sodium (Chloride) 250 mls @ 250 mls/hr IV Q24H [facility] Last Admin: 01/01/18 18:34 Dose: 250 mls/hr Levothyroxine Sodium (Levothyroxine) 87.5 mcg PO ACBRK [facility] Last Admin: 01/01/18 06:45 Dose: 87.5 mcg Loratadine (Claritin) 10 mg PO DAILY [facility] Last Admin: 01/01/18 08:54 Dose: 10 mg Methylprednisolone Sodium Succinate (Solu-Medrol) 125 mg IV Q8H [facility] Last Admin: 01/02/18 02:10 Dose: 125 mg Metoprolol Tartrate (Lopressor) 12.5 mg PO BID [facility] Last Admin: 01/01/18 20:22 Dose: 12.5 mg Mirtazapine (Remeron) 45 mg PO BEDTIME [facility] Last Admin: 01/01/18 20:22 Dose: 45 mg Morphine Sulfate (Morphine) 2 mg IVPUSH Q1H PRN PRN Reason: Shortness of Breath Multivitamins/Minerals/Vitamin C (Tab-A-Yaquelin) 1 tab PO DAILY [facility] Last Admin: 01/01/18 08:58 Dose: 1 tab Oseltamivir Phosphate (Tamiflu) 30 mg PO BID [facility] Stop: 01/04/18 09:01 Last Admin: 01/01/18 20:23 Dose: 30 mg Oxybutynin Chloride (Oxybutynin Er) 15 mg PO DAILY [facility] Last Admin: 01/01/18 08:56 Dose: 15 mg Pantoprazole Sodium (Protonix) 40 mg PO DAILY [facility] Last Admin: 01/01/18 08:57 Dose: 40 mg Senna/Docusate Sodium (Senna Plus) 1 tab PO BID [facility] Last Admin: 01/01/18 20:23 Dose: 1 tab Sertraline HCl (Zoloft) 150 mg PO DAILY [facility] Last Admin: 01/01/18 08:58 Dose: 150 mg Sodium Chloride (Saline Flush) 10 ml FLUSH ASDIRECTED PRN PRN Reason: Keep Vein Open Last Admin: 01/02/18 02:11 Dose: 10 ml Discontinued Medications Albuterol/Ipratropium (Duoneb 3.0-0.5 Mg/3 Ml) 3 ml NEB Q4H PRN PRN Reason: Shortness of Breath Last Admin: 12/30/17 19:01 Dose: 3 ml Albuterol/Ipratropium (Duoneb 3.0-0.5 Mg/3 Ml) Confirm Administered Dose 3 ml .ROUTE .STK-MED ONE Stop: 12/30/17 14:05 Last Admin: 12/30/17 14:11 Dose: 3 ml Albuterol/Ipratropium (Duoneb 3.0-0.5 Mg/3 Ml) 3 ml NEB Q4H [facility] Last Admin: 01/01/18 07:24 Dose: 3 ml Apixaban (Eliquis) 2.5 mg PO BID [facility] Last Admin: 12/30/17 22:10 Dose: Not Given Azithromycin (Zithromax) Confirm Administered Dose 500 mg .ROUTE .STK-MED ONE Stop: 12/30/17 18:14 Last Admin: 12/30/17 18:53 Dose: Not Given Azithromycin (Zithromax) Confirm Administered Dose 500 mg .ROUTE .[facility] ONE Stop: 12/31/17 18:16 Last Admin: 12/31/17 18:40 Dose: Not Given Calcium Carbonate/Glycine (Tums) 750 mg PO DAILY PRN PRN Reason: Indigestion Last Admin: 12/30/17 20:42 Dose: 750 mg Ceftriaxone Sodium (Rocephin) 1,000 mg IV Q24H [facility] Stop: 12/30/17 23:59 Last Admin: 12/30/17 19:49 Dose: 1,000 mg Diatrizoate Meglum/Diatrizoate Sod (Gastrografin 37%) 30 ml PO . DIRECTED ONE Stop: 01/01/18 11:53 Last Admin: 01/01/18 12:09 Dose: 30 ml Enoxaparin Sodium (Lovenox) 30 mg SUBCUT Q24H [facility] Last Admin: 12/30/17 18:51 Dose: Not Given Ferrous Gluconate (Ferrous Gluconate) 324 mg PO DAILY [facility] Last Admin: 12/31/17 11:22 Dose: Not Given Piperacillin Sod/Tazobactam (Sod 2.25 gm/ Sodium Chloride) 50 mls @ 100 mls/hr IV Q6H [facility] Last Admin: 12/30/17 18:51 Dose: Not Given Vancomycin HCl 0.75 gm/ Sodium (Chloride) 250 mls @ 167 mls/hr IV Q24H [facility] Last Admin: 12/31/17 14:29 Dose: 167 mls/hr Piperacillin Sod/Tazobactam (Sod 3.375 gm/ Sodium Chloride) 50 mls @ 100 mls/ hr IV Q6H [facility] Last Admin: 12/31/17 13:47 Dose: 100 mls/hr Sodium Chloride (Normal Saline) 1,000 mls @ 999 mls/hr IV ASDIRECTED [facility] Last Admin: 12/30/17 14:11 Dose: 999 mls/hr Ceftriaxone Sodium 1,000 mg/ (Sodium Chloride) 50 mls @ 100 mls/hr IV Q24H [facility] Last Admin: 12/30/17 20:09 Dose: Not Given Sodium Chloride (Normal Saline) 1,000 mls @ 100 mls/hr IV ASDIRECTED [facility] Last Admin: 01/01/18 05:22 Dose: 100 mls/hr Vancomycin HCl 750 mg/ Sodium (Chloride) 250 mls @ as directed IV .STK-MED ONE Stop: 12/30/17 15:19 Vancomycin HCl 750 mg/ Sodium (Chloride) 250 mls @ as directed IV .STK-MED ONE Stop: 12/31/17 14:30 Iopamidol (Isovue-370 (76%)) 75 ml IV ONETIME ONE Stop: 01/01/18 11:53 Last Admin: 01/01/18 12:09 Dose: 75 ml Morphine Sulfate (Morphine) 2 mg IVPUSH Q1H [facility] Last Admin: 12/30/17 18:52 Dose: Not Given Oseltamivir Phosphate (Tamiflu) 75 mg PO BID [facility] Last Admin: 12/30/17 22:10 Dose: Not Given Oseltamivir Phosphate (Tamiflu) 30 mg PO BID [facility] Stop: 01/04/18 09:01 - Exam General: Alert, Oriented, Cooperative Lungs: Clear to Auscultation, Normal Respiratory Effort Cardiovascular: Regular Rate, Regular Rhythm, No Murmurs - Problem List & Annotations (1) Upper respiratory tract infection SNOMED Code(s): 22495881 Code(s): J06.9 - ACUTE UPPER RESPIRATORY INFECTION, UNSPECIFIED Status: Acute Current Visit: Yes (2) COPD exacerbation SNOMED Code(s): 510827074092441 Code(s): J44.1 - CHRONIC OBSTRUCTIVE PULMONARY DISEASE W (ACUTE) EXACERBATION Status: Acute Current Visit: No (3) Afib SNOMED Code(s): 51882053 Code(s): I48.91 - UNSPECIFIED ATRIAL FIBRILLATION Status: Chronic Current Visit: No Qualifiers: Atrial fibrillation type: paroxysmal (4) Hyponatremia SNOMED Code(s): 50885427 Code(s): E87.1 - HYPO-OSMOLALITY AND HYPONATREMIA Status: Acute Current Visit: Yes (5) Palliative care status SNOMED Code(s): 256592238 Code(s): Z51.5 - ENCOUNTER FOR PALLIATIVE CARE Status: Acute Current Visit: Yes (6) Incontinence SNOMED Code(s): 26508052 Code(s): R32 - UNSPECIFIED URINARY INCONTINENCE Status: Acute Current Visit: Yes (7) UTI (urinary tract infection) SNOMED Code(s): 45573018 Code(s): N39.0 - URINARY TRACT INFECTION, SITE NOT SPECIFIED Status: Acute Current Visit: Yes (8) Influenza A SNOMED Code(s): 233078642 Code(s): J10.1 - FLU DUE TO OTH IDENT INFLUENZA VIRUS W OTH RESP MANIFEST Status: Acute Current Visit: Yes (9) Inguinal lymphadenopathy SNOMED Code(s): 637362392 Code(s): R59.0 - LOCALIZED ENLARGED LYMPH NODES Status: Acute Current Visit: Yes - Problem List Review Problem List Initiated/Reviewed/Updated: Yes - My Orders Last 24 Hours: My Active Orders 01/01/18 08:09 Consult to Occupational Therapy [OT Evaluation and Treatment] [CONS] Routine Consult to Physical Therapy [PT Evaluation and Treatment] [CONS] Routine Convert IV to Saline Lock [OM.PC] Routine 01/01/18 09:00 Calcium Carbonate [Tums] 750 mg PO DAILY PRN 01/01/18 11:00 Albuterol/Ipratropium [DuoNeb 3.0-0.5 MG/3 ML] 3 ml NEB QIDRT - Plan Plan:: 1. Discharge to home. 2. Reviewed CAT scan no signs of metastasis. 3. Chest x-ray two-view shows possible little pneumonia left base. Send him home on Zithromax. 4. He is a good candidate for home health and PT.
[2018-01-02] MEDS: Dicyclomine 10 MG Cap PO SCH ×2 (08:14→10:54)
[2018-01-02] MEDS: Ferrous Sulfate 325 MG Tab PO SCH (08:14)
[2018-01-02] MEDS: Aspirin 81 MG Tab.Chew PO SCH (08:30)
--- NOTE | 2018-01-02 08:36 | PCM.DCSUM1 ---
Discharge Summary - Hospital Course Free Text/Narrative:: Hospital course-patient was admitted and put on Tamiflu, Rocephin and Zithromax. Patient was hypoxic and slowly over the couple days his oxygen improved. COPD was a Solu-Medrol. His strength improved and his fevers and chills stop. His initial PA of the chest show no acute changes other than COPD. Repeated chest x-ray showed a little left lower lobe pneumonia. He had hyponatremia which improved with time. He was found to have a right inguinal node that was hard. He has history of bladder cancer. Did a CT scan of his chest and abdomen showed no metastasis. I'll have him follow-up with his primary provider for further workup. Be discharged home on home health and PT Brief History: This is a 72-year-old male patient of [facility]. He's have a 2 week history of shortness of breath and a productive cough. He says he feels cold all the time for last month but no fevers. He has nasal congestion but no sore throat, ear pain. Shortness of breath is been getting worse so they brought him to the ER. He was using a sensory muscle respiration so he was admitted. He has history of smoking for 20 years he says he smokes 1 cigarette a day. He denies any leg swelling, M.D., orthopnea or leg swelling - Discharge Data Discharge Date: 01/02/18 Discharge Disposition: Home, Self-Care 01 Condition: Good - Discharge Diagnosis/Problem(s) (1) Upper respiratory tract infection SNOMED Code(s): 32216875 ICD Code: J06.9 - ACUTE UPPER RESPIRATORY INFECTION, UNSPECIFIED Status: Acute Current Visit: Yes (2) COPD exacerbation SNOMED Code(s): 558204515812563 ICD Code: J44.1 - CHRONIC OBSTRUCTIVE PULMONARY DISEASE W (ACUTE) EXACERBATION Status: Acute Current Visit: No (3) Afib SNOMED Code(s): 19326789 ICD Code: I48.91 - UNSPECIFIED ATRIAL FIBRILLATION Status: Chronic Current Visit: No Qualifiers: Atrial fibrillation type: paroxysmal (4) Hyponatremia SNOMED Code(s): 12753590 ICD Code: E87.1 - HYPO-OSMOLALITY AND HYPONATREMIA Status: Acute Current Visit: Yes (5) Palliative care status SNOMED Code(s): 299094026 ICD Code: Z51.5 - ENCOUNTER FOR PALLIATIVE CARE Status: Acute Current Visit: Yes (6) Incontinence SNOMED Code(s): 24977527 ICD Code: R32 - UNSPECIFIED URINARY INCONTINENCE Status: Acute Current Visit: Yes (7) UTI (urinary tract infection) SNOMED Code(s): 89518664 ICD Code: N39.0 - URINARY TRACT INFECTION, SITE NOT SPECIFIED Status: Acute Current Visit: Yes (8) Influenza A SNOMED Code(s): 465338086 ICD Code: J10.1 - FLU DUE TO OTH IDENT INFLUENZA VIRUS W OTH RESP MANIFEST Status: Acute Current Visit: Yes (9) Inguinal lymphadenopathy SNOMED Code(s): 678066011 ICD Code: R59.0 - LOCALIZED ENLARGED LYMPH NODES Status: Acute Current Visit: Yes - Patient Summary/Data Consults: Consultations 01/01/18 08:09 Consult to Occupational Therapy [OT Evaluation and Treatment] [CONS] Routine Please Evaluate and Treat. OT Reason for Consult: Strengthening This query below is only for informational purposes and is not editable. Admission Diagnosis/Problem: COPD with acute lower respiratory infection Consult to Physical Therapy [PT Evaluation and Treatment] [CONS] Routine Please Evaluate and Treat. PT Reason for Consult: Strengthening This query below is only for informational purposes and is not editable. Admission Diagnosis/Problem: COPD with acute lower respiratory infection - Patient Instructions Diet: Regular Diet as Tolerated Activity: As Tolerated Driving: Do Not Drive Showering/Bathing: May Shower Notify Provider of: Fever, Increased Pain, Drainage Other/Special Instructions: 1. Recheck with Reji Watts 7-10 days. - Discharge Plan Prescriptions/Med Rec: Azithromycin [Zithromax] 250 mg PO DAILY #2 tab Oseltamivir [Tamiflu] 30 mg PO BID #2 cap predniSONE [Prednisone] 50 mg PO DAILY #7 tablet Home Medications: Home Meds Tamsulosin [Flomax] 0.4 mg PO PCBRK #30 cap.er 11/25/13 [Rx] Multivitamin [Daily Vitamin] 1 tab PO DAILY 10/21/14 [History] Omeprazole 40 mg PO DAILY 10/21/14 [History] Ferrous Gluconate 324 mg PO DAILY 11/22/14 [History] Oxybutynin Chloride [Ditropan Xl] 15 mg PO DAILY 12/25/14 [History] Mirtazapine 45 mg PO BEDTIME 02/03/16 [History] Sertraline [Zoloft] 150 mg PO DAILY 30 Days tab 03/02/16 [Rx] Albuterol/Ipratropium [DuoNeb 3.0-0.5 MG/3 ML] 3 ml NEB Q4H PRN #120 neb [Rx] Acetaminophen 1,000 mg PO TID PRN 09/15/17 [History] Apixaban [Eliquis] 2.5 mg PO BID 09/15/17 [History] Aspirin 81 mg PO DAILY 09/15/17 [History] Dicyclomine [Bentyl] 10 mg PO QIDACANDBED 09/15/17 [History] Loratadine 10 mg PO DAILY 09/15/17 [History] Metoprolol Tartrate [Lopressor] 12.5 mg PO BID 09/15/17 [History] Sennosides/Docusate Sodium [Sennosides-Docusate Sodium] 1 tab PO BID 09/15/17 [ History] Triamcinolone Acetonide [Triamcinolone Acetonide 0.1% Oint] 1 applic TOP DAILY 09/15/17 [History] atorvaSTATin [Lipitor] 20 mg PO BEDTIME 09/15/17 [History] Sodium Chloride 1 gm PO TID 09/16/17 [History] Calcium Carbonate [Tums] 750 mg PO DAILY PRN 12/24/17 [History] Levothyroxine 87.5 mcg PO ACBRK 12/24/17 [History] Azithromycin [Zithromax] 250 mg PO DAILY #2 tab 01/02/18 [Rx] Oseltamivir [Tamiflu] 30 mg PO BID #2 cap 01/02/18 [Rx] predniSONE [Prednisone] 50 mg PO DAILY #7 tablet 01/02/18 [Rx] Forms: ED Department Discharge Referrals: Michael Cosme MD [Primary Care Provider] - - Discharge Summary/Plan Comment DC Time >30 min.: Yes - Patient Data Vitals - Most Recent: Last Vital Signs Temp 97.9 F 01/02/18 08:00 Pulse 66 01/02/18 07:35 Resp 16 01/02/18 08:00 BP 127/75 01/02/18 08:00 Pulse Ox 85 L 01/02/18 08:00 Weight - Most Recent: 117 lb 4.8 oz I&O - Last 24 hours: Intake & Output 01/01/18 01/02/18 01/02/18 22:59 06:59 14:59 Intake Total 1060 Balance 1060 FRANCIE Results - Last 24 hrs: Microbiology 12/30/17 18:40 Urine Culture - Final Urine, Bladder MIXED POSITIVE [facility] DAY 2 Med Orders - Current: Current Medications Acetaminophen (Tylenol Extra Strength) 1,000 mg PO TID PRN PRN Reason: Pain/Fever Albuterol/Ipratropium (Duoneb 3.0-0.5 Mg/3 Ml) 3 ml NEB Q2H PRN PRN Reason: Shortness of Breath Albuterol/Ipratropium (Duoneb 3.0-0.5 Mg/3 Ml) 3 ml NEB QIDRT [facility] Last Admin: 01/02/18 07:16 Dose: 3 ml Apixaban (Eliquis) 2.5 mg PO BID [facility] Last Admin: 01/01/18 20:21 Dose: 2.5 mg Aspirin (Aspirin) 81 mg PO DAILY [facility] Last Admin: 01/01/18 08:54 Dose: 81 mg Atorvastatin Calcium (Lipitor) 20 mg PO BEDTIME [facility] Last Admin: 01/01/18 20:22 Dose: 20 mg Calcium Carbonate/Glycine (Tums) 750 mg PO DAILY PRN PRN Reason: Indigestion Ceftriaxone Sodium (Rocephin) 1,000 mg IV DAILY@1600 [facility] Last Admin: 01/01/18 16:58 Dose: 1,000 mg Dicyclomine HCl (Bentyl) 10 mg PO QIDACANDBED [facility] Last Admin: 01/02/18 08:14 Dose: 10 mg Ferrous Sulfate (Ferrous Sulfate) 325 mg PO WITHBREAKFAST [facility] Last Admin: 01/02/18 08:14 Dose: 325 mg Azithromycin 500 mg/ Sodium (Chloride) 250 mls @ 250 mls/hr IV Q24H [facility] Last Admin: 01/01/18 18:34 Dose: 250 mls/hr Levothyroxine Sodium (Levothyroxine) 87.5 mcg PO ACBRK [facility] Last Admin: 01/02/18 08:13 Dose: 87.5 mcg Loratadine (Claritin) 10 mg PO DAILY [facility] Last Admin: 01/01/18 08:54 Dose: 10 mg Methylprednisolone Sodium Succinate (Solu-Medrol) 125 mg IV Q8H [facility] Last Admin: 01/02/18 02:10 Dose: 125 mg Metoprolol Tartrate (Lopressor) 12.5 mg PO BID [facility] Last Admin: 01/01/18 20:22 Dose: 12.5 mg Mirtazapine (Remeron) 45 mg PO BEDTIME [facility] Last Admin: 01/01/18 20:22 Dose: 45 mg Morphine Sulfate (Morphine) 2 mg IVPUSH Q1H PRN PRN Reason: Shortness of Breath Multivitamins/Minerals/Vitamin C (Tab-A-Yaquelin) 1 tab PO DAILY [facility] Last Admin: 01/01/18 08:58 Dose: 1 tab Oseltamivir Phosphate (Tamiflu) 30 mg PO BID [facility] Stop: 01/04/18 09:01 Last Admin: 01/01/18 20:23 Dose: 30 mg Oxybutynin Chloride (Oxybutynin Er) 15 mg PO DAILY [facility] Last Admin: 01/01/18 08:56 Dose: 15 mg Pantoprazole Sodium (Protonix) 40 mg PO DAILY [facility] Last Admin: 01/01/18 08:57 Dose: 40 mg Senna/Docusate Sodium (Senna Plus) 1 tab PO BID [facility] Last Admin: 01/01/18 20:23 Dose: 1 tab Sertraline HCl (Zoloft) 150 mg PO DAILY [facility] Last Admin: 01/01/18 08:58 Dose: 150 mg Sodium Chloride (Saline Flush) 10 ml FLUSH ASDIRECTED PRN PRN Reason: Keep Vein Open Last Admin: 01/02/18 02:11 Dose: 10 ml Discontinued Medications Albuterol/Ipratropium (Duoneb 3.0-0.5 Mg/3 Ml) 3 ml NEB Q4H PRN PRN Reason: Shortness of Breath Last Admin: 12/30/17 19:01 Dose: 3 ml Albuterol/Ipratropium (Duoneb 3.0-0.5 Mg/3 Ml) Confirm Administered Dose 3 ml .ROUTE .STK-MED ONE Stop: 12/30/17 14:05 Last Admin: 12/30/17 14:11 Dose: 3 ml Albuterol/Ipratropium (Duoneb 3.0-0.5 Mg/3 Ml) 3 ml NEB Q4H [facility] Last Admin: 01/01/18 07:24 Dose: 3 ml Apixaban (Eliquis) 2.5 mg PO BID [facility] Last Admin: 12/30/17 22:10 Dose: Not Given Azithromycin (Zithromax) Confirm Administered Dose 500 mg .ROUTE .STK-MED ONE Stop: 12/30/17 18:14 Last Admin: 12/30/17 18:53 Dose: Not Given Azithromycin (Zithromax) Confirm Administered Dose 500 mg .ROUTE .STK-MED ONE Stop: 12/31/17 18:16 Last Admin: 12/31/17 18:40 Dose: Not Given Calcium Carbonate/Glycine (Tums) 750 mg PO DAILY PRN PRN Reason: Indigestion Last Admin: 12/30/17 20:42 Dose: 750 mg Ceftriaxone Sodium (Rocephin) 1,000 mg IV Q24H [facility] Stop: 12/30/17 23:59 Last Admin: 12/30/17 19:49 Dose: 1,000 mg Diatrizoate Meglum/Diatrizoate Sod (Gastrografin 37%) 30 ml PO . DIRECTED ONE Stop: 01/01/18 11:53 Last Admin: 01/01/18 12:09 Dose: 30 ml Enoxaparin Sodium (Lovenox) 30 mg SUBCUT Q24H [facility] Last Admin: 12/30/17 18:51 Dose: Not Given Ferrous Gluconate (Ferrous Gluconate) 324 mg PO DAILY [facility] Last Admin: 12/31/17 11:22 Dose: Not Given Piperacillin Sod/Tazobactam (Sod 2.25 gm/ Sodium Chloride) 50 mls @ 100 mls/hr IV Q6H [facility] Last Admin: 12/30/17 18:51 Dose: Not Given Vancomycin HCl 0.75 gm/ Sodium (Chloride) 250 mls @ 167 mls/hr IV Q24H [facility] Last Admin: 12/31/17 14:29 Dose: 167 mls/hr Piperacillin Sod/Tazobactam (Sod 3.375 gm/ Sodium Chloride) 50 mls @ 100 mls/ hr IV Q6H [facility] Last Admin: 12/31/17 13:47 Dose: 100 mls/hr Sodium Chloride (Normal Saline) 1,000 mls @ 999 mls/hr IV ASDIRECTED [facility] Last Admin: 12/30/17 14:11 Dose: 999 mls/hr Ceftriaxone Sodium 1,000 mg/ (Sodium Chloride) 50 mls @ 100 mls/hr IV Q24H [facility] Last Admin: 12/30/17 20:09 Dose: Not Given Sodium Chloride (Normal Saline) 1,000 mls @ 100 mls/hr IV ASDIRECTED [facility] Last Admin: 01/01/18 05:22 Dose: 100 mls/hr Vancomycin HCl 750 mg/ Sodium (Chloride) 250 mls @ as directed IV .STK-MED ONE Stop: 12/30/17 15:19 Vancomycin HCl 750 mg/ Sodium (Chloride) 250 mls @ as directed IV .STK-MED ONE Stop: 12/31/17 14:30 Iopamidol (Isovue-370 (76%)) 75 ml IV ONETIME ONE Stop: 01/01/18 11:53 Last Admin: 01/01/18 12:09 Dose: 75 ml Morphine Sulfate (Morphine) 2 mg IVPUSH Q1H [facility] Last Admin: 12/30/17 18:52 Dose: Not Given Oseltamivir Phosphate (Tamiflu) 75 mg PO BID [facility] Last Admin: 12/30/17 22:10 Dose: Not Given Oseltamivir Phosphate (Tamiflu) 30 mg PO BID [facility] Stop: 01/04/18 09:01 *Q Meaningful Use (DIS) - VTE *Q VTE Criteria *Q: - Stroke *Q Stroke Criteria *Q: - AMI *Q AMI Criteria *Q:
[2018-01-02] MEDS: Apixaban 5 MG Tab PO SCH (08:45)
[2018-01-02] MEDS: Loratadine 10 MG Tab PO SCH (08:45)
[2018-01-02] MEDS: Metoprolol Tartrate 25 MG Tab PO SCH (08:46)
[2018-01-02] MEDS: Oxybutynin 5 MG Tab.ER PO SCH (08:48)
[2018-01-02] MEDS: Pantoprazole 40 MG Tab.CR PO SCH (08:50)
[2018-01-02] MEDS: Sertraline 50 MG Tab PO SCH (08:50)
[2018-01-02] MEDS: Multivitamin Tab PO SCH (08:50)
[2018-01-02] MEDS: Oseltamivir 30 MG Cap PO SCH (08:52)
[2018-01-02 12:37] VITALS: BP 138/86
== END 2018-01-02 12:56 | disposition home health service (06) | DRG 190 ==
LOC: FB.ED 12:54 → FB.MS 16:25 → OBSVTOIN 16:55
PROVIDERS: ADMIT Family Medicine; ATTEND Family Medicine
DX: J44.0 Chronic obstructive pulmonary disease with (acute) lower respiratory infection (principal); J18.9 Pneumonia, unspecified organism; E87.1 Hypo-osmolality and hyponatremia; N39.0 Urinary tract infection, site not specified; Z87.01 Personal history of pneumonia (recurrent); J06.9 Acute upper respiratory infection, unspecified; J44.1 Chronic obstructive pulmonary disease with (acute) exacerbation; J10.1 Influenza due to other identified influenza virus with other respiratory manifestations; F17.210 Nicotine dependence, cigarettes, uncomplicated; E03.9 Hypothyroidism, unspecified; I48.91 Unspecified atrial fibrillation; I10 Essential (primary) hypertension; Z66 Do not resuscitate; R06.02 Shortness of breath; R50.9 Fever, unspecified; Z51.5 Encounter for palliative care; R09.02 Hypoxemia; Z79.01 Long term (current) use of anticoagulants; I25.10 Atherosclerotic heart disease of native coronary artery without angina pectoris; K21.9 Gastro-esophageal reflux disease without esophagitis; N40.1 Benign prostatic hyperplasia with lower urinary tract symptoms; N39.498 Other specified urinary incontinence; R59.0 Localized enlarged lymph nodes; Z85.51 Personal history of malignant neoplasm of bladder; Z92.3 Personal history of irradiation; R63.4 Abnormal weight loss; R23.4 Changes in skin texture; Z96.649 Presence of unspecified artificial hip joint; Z96.659 Presence of unspecified artificial knee joint; Z79.82 Long term (current) use of aspirin; Z79.52 Long term (current) use of systemic steroids
CPT/HCPCS: 36415; 36600; 71045; 71046; 74177; 80048; 80053; 81001; 82803; 83605; 84443; 84484; 85025; 85379; 87040; 87086; 87804; 93005; 94640; 96365; 96367; 97165-GO; 99285; A9270-GY; J0456; J0696; J2543; J2930; J3370; J7040; J7050; J7620; Q9967

== ENCOUNTER 2018-08-26 18:26 | Emergency (ER) | payer MEDICARE, OTHER, MEDICAID ==
[2018-08-26] MEDS ORDERED: Sulfamethoxazole/Trimethoprim 800-160 MG Tab PO ONE (20:28)
[2018-08-26 21:54] VITALS: BP 167/76
--- NOTE | 2018-08-27 11:17 | EDM.PDOC ---
ED HPI GENERAL MEDICAL PROBLEM - General Chief Complaint: Genitourinary Problem Stated Complaint: PENIS BLEEDING Time Seen by Provider: 08/26/18 18:30 Source of Information: Reports: Patient, Other (Notes from the [facility] from Mark BANUELOS) History Limitations: Reports: No Limitations - History of Present Illness INITIAL COMMENTS - FREE TEXT/NARRATIVE: This 72-year-old resident of noted to have painless penis bleeding. He's had previous prostate and bladder cancer, coronary artery disease , COPD, depression, hypothyroidism, atrial fibrillation, inanation 40 pound weight loss in an months with his cancer, multiple ER visits and hospitalization for dehydration and care. He is twice . At one point he was self cathetering but he stopped self cathetering. The urine shows is incontinent and he chooses not to catheter nor does the staff at [facility]. He has smoked 66 pack years of cigarettes. is significant. Chronic obstructive lung disease he uses oxygen when she sleeps and when he walks. His noted increased cough the past 2 days. He has pain in his lower back. Right foot fusion of his bones. His " right hip prosthesis fell off" he has had repeat right hip surgery - Related Data Allergies Allergy/AdvReac Type Severity Reaction Status Date / Time No Known Allergies Allergy Verified 12/30/17 13:01 Home Meds: Home Meds Tamsulosin [Flomax] 0.4 mg PO PCBRK #30 cap.er 11/25/13 [Rx] Multivitamin [Daily Vitamin] 1 tab PO DAILY 10/21/14 [History] Omeprazole 40 mg PO DAILY 10/21/14 [History] Ferrous Gluconate 324 mg PO DAILY 11/22/14 [History] Oxybutynin Chloride [Ditropan Xl] 15 mg PO DAILY 12/25/14 [History] Mirtazapine 45 mg PO BEDTIME 02/03/16 [History] Sertraline [Zoloft] 150 mg PO DAILY 30 Days tab 03/02/16 [Rx] Albuterol/Ipratropium [DuoNeb 3.0-0.5 MG/3 ML] 3 ml NEB Q4H PRN #120 neb [Rx] Acetaminophen 1,000 mg PO TID PRN 09/15/17 [History] Apixaban [Eliquis] 2.5 mg PO BID 09/15/17 [History] Aspirin 81 mg PO DAILY 09/15/17 [History] Dicyclomine [Bentyl] 10 mg PO QIDACANDBED 09/15/17 [History] Loratadine 10 mg PO DAILY 09/15/17 [History] Metoprolol Tartrate [Lopressor] 12.5 mg PO BID 09/15/17 [History] Sennosides/Docusate Sodium [Sennosides-Docusate Sodium] 1 tab PO BID 09/15/17 [ History] Triamcinolone Acetonide [Triamcinolone Acetonide 0.1% Oint] 1 applic TOP DAILY 09/15/17 [History] atorvaSTATin [Lipitor] 20 mg PO BEDTIME 09/15/17 [History] Sodium Chloride 1 gm PO TID 09/16/17 [History] Calcium Carbonate [Tums] 750 mg PO DAILY PRN 12/24/17 [History] Levothyroxine 87.5 mcg PO ACBRK 12/24/17 [History] Azithromycin [Zithromax] 250 mg PO DAILY #2 tab 01/02/18 [Rx] Oseltamivir [Tamiflu] 30 mg PO BID #2 cap 01/02/18 [Rx] predniSONE [Prednisone] 50 mg PO DAILY #7 tablet 01/02/18 [Rx] Past Medical History HEENT History: Reports: Impaired Vision Other HEENT History: EYEGLASSES, wears full dentures Cardiovascular History: Reports: Afib, CAD Respiratory History: Reports: Pneumonia, Recurrent, Other (See Below) Other Respiratory History: long time smoker Genitourinary History: Reports: Prostate Disorder, Urinary Incontinence Other Genitourinary History: history of bladder ca with resulting incontinence Other Musculoskeletal History: RODS PLACED IN BACK. Psychiatric History: Reports: Depression Endocrine/Metabolic History: Reports: Hypothyroidism Hematologic History: Reports: Blood Transfusion(s) Oncologic (Cancer) History: Reports: Bladder Dermatologic History: Reports: Other (See Below) Other Dermatologic History: MULTIPLE OLD HEALED SCRATCH ECHEVERRIA - Infectious Disease History Infectious Disease History: Reports: None - Past Surgical History GI Surgical History: Reports: Appendectomy Male Surgical History: Reports: Other (See Below) Other Male Surgeries/Procedures: radiation for bladder cancer Musculoskeletal Surgical History: Reports: Hip Replacement, Knee Replacement, Other (See Below) Other Musculoskeletal Surgeries/Procedures:: rt foot fused Social & Family History - Family History Family Medical History: Noncontributory OBGYN: Reports: Endocrine/Metabolic: Reports: Diabetes, type II Other Dermatologic Family History: SISTER OF MVC Oncologic: Reports: Other (See Below) Other Oncologic Family History: BOTH MOTHER, FATHER AND BROTHER OF CA. PT UNSURE OF KIND - Tobacco Use Smoking Status *Q: Former Smoker Used Tobacco, but Quit: Yes Month/Year Tobacco Last Used: many years ago - Caffeine Use Caffeine Use: Reports: Coffee Other Caffeine Use: 6-8 cups per day Caffeine Use Comment: 5-6 cups a day - Recreational Drug Use Recreational Drug Use: No ED ROS GENERAL - Review of Systems Review Of Systems: See Below Constitutional: Reports: Other (Weight loss C) HEENT: Reports: Other (Classes) Respiratory: Reports: Shortness of Breath, Cough, Sputum Cardiovascular: Reports: No Symptoms, Dyspnea on Exertion, Edema Endocrine: Reports: Fatigue GI/Abdominal: Reports: No Symptoms : Reports: Hematuria, Incontinence, Other (Do. Urine swelling of his attends) Musculoskeletal: Reports: Other (Muscle weakness and atrophy) Skin: Reports: No Symptoms, Other (No skin breakdown of his perineum perirectal issue in spite of his constant continence) Neurological: Reports: No Symptoms, Tremors, Weakness, Other (Because of his atrophy he does not walk but he can stand) Psychiatric: Reports: Other (No delusions or confusions) Hematologic/Lymphatic: Reports: No Symptoms, Anemia Immunologic: Reports: No Symptoms ED EXAM, RENAL/ - Physical Exam Exam: See Below Text/Narrative:: Pleasant alert cachectic male is resting without any pain but has notable odor from the constant incontinence. He has Good hygiene as well taken care of has no decubitus ulcers . Exam Limited By: No Limitations General Appearance: Alert, WD/WN, No Apparent Distress, Thin, Other (No distress ) Eye Exam: Bilateral Eye: Normal Inspection Ears: Normal External Exam, Normal Canal, Hearing Grossly Normal, Normal TMs Nose: Normal Inspection, Normal Mucosa Throat/Mouth: Normal Inspection, Normal Lips, Normal Teeth, Normal Gums, Normal Oropharynx, Normal Voice, Other (Primary course of) Head: Atraumatic, Normocephalic Neck: Normal Inspection Respiratory/Chest: No Respiratory Distress, Chest Non-Tender, Crackles, Rales, Accessory Muscle Use, Other (Sickle expiratory rales) Cardiovascular: Systolic Murmur, Other (Decrease or lower cavity peripheral pulses atrial fibrillation) GI/Abdominal: Normal Bowel Sounds (Greater than S1), Soft, Non-Tender, No Organomegaly, No Distention, No Abnormal Bruit, No Mass (Male) Exam: No Hernia, Circumcised, Other (As soon pink urine soiling of his tenderness with intermittent first of urine was or sits up) Rectal (Males) Exam: Deferred Back Exam: Normal Inspection Psychiatric: Normal Affect, Normal Mood Skin Exam: Warm, Dry, Intact Lymphatic: No Adenopathy Course - Vital Signs Last Recorded V/S: Last Vital Signs Temp 36.6 C 08/26/18 18:26 Pulse 82 08/26/18 21:15 Resp 20 08/26/18 21:15 BP 167/76 H 08/26/18 21:15 Pulse Ox 91 L 08/26/18 21:15 - Orders/Labs/Meds Labs: Laboratory Tests 08/26/18 08/26/18 08/26/18 Range/Units 19:03 19:35 19:35 WBC 6.4 (4.5-12.0) X10-3/uL RBC 3.27 L (4.30-5.75) x10(6)uL Hgb 10.2 L (11.5-15.5) g/dL Hct 30.2 (30.0-51.3) % MCV 92.3 (80-96) fL MCH 31.1 (27.7-33.6) pg MCHC 33.7 (32.2-35.4) g/dL RDW 13.1 (11.5-15.5) % Plt Count 245 (125-369) X10(3)uL MPV 7.4 (7.4-10.4) fL Neut % (Auto) 70.1 (46-82) % Lymph % (Auto) 14.6 (13-37) % Grady % (Auto) 9.4 (4-12) % Eos % (Auto) 5 (1.0-5.0) % Baso % (Auto) 1 (0-2) % Neut # (Auto) 4.5 (1.6-8.3) # Lymph # (Auto) 0.9 (0.6-5.0) # Grady # (Auto) 0.6 (0.0-1.3) # Eos # (Auto) 0.3 (0.0-0.8) # Baso # (Auto) 0.1 (0.0-0.2) # PT 10.4 (8.7-11.1) INR 1.07 (0.89-1.13) APTT 27.7 (24.4-33.2) SECONDS Urine Color Red (YELLOW) Urine Appearance Cloudy (CLEAR) Urine pH 7.0 H (5.0-6.5) Ur Specific [place] 1.005 L (1.010-1.025) Urine Protein Trace (NEGATIVE) mg/dL Urine Glucose (UA) Normal (NEGATIVE) mg/dL Urine Ketones Negative (NEGATIVE) mg/dL Urine Occult Blood Large H (NEGATIVE) Urine Nitrite Negative (NEGATIVE) Urine Bilirubin Negative (NEGATIVE) Urine Urobilinogen Normal (NEGATIVE) mg/dL Ur Leukocyte Esterase Moderate H (NEGATIVE) Urine RBC Packed H (0) Meds: Medications Discontinued Medications Generic Name Dose Route Start Last Admin Trade Name Freq PRN Reason Stop Dose Admin Trimethoprim/Sulfamethoxazole 1 tab 08/26/18 20:28 08/26/18 20:38 Septra Ds PO 08/26/18 20:29 1 tab ONETIME ONE Administration Departure - Departure Time of Disposition: 19:25 (A since departure was related because he need transportation from [facility] assisted care unit/ambulance ride. Patient's incontinence is a function of his partners cancer prostate cancer and radiation seeds treatment with subsequent hematuria associated from the student many years ago radiation therapy induced cystitis no clear evidence of urinary tract infection [place] to mediate potential infectious inflammatory involvement at a [facility] will be provided. Patient will be following up with a urologist/ oncologist and 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, Prostate cancer Bladder cancer Qualifiers: Bladder location: unspecified site Qualified Code(s): C67.9 - Malignant neoplasm of bladder, unspecified Incontinence of urine Qualifiers: Urinary Incontinence type: continuous leakage Qualified Code(s): N39.45 - Continuous leakage - Discharge Information *PRESCRIPTION DRUG MONITORING PROGRAM REVIEWED*: Not Applicable *COPY OF PRESCRIPTION DRUG MONITORING REPORT IN PATIENT ARMDIA: Not Applicable Instructions: Urinary Tract Infection, Adult, [id number], Sulfamethoxazole; Trimethoprim, SMX-TMP tablets, Hematuria, Adult Referrals: PCP,None [Primary Care Provider] - Forms: ED Department Discharge Additional Instructions: The blood in your urine perhaps is coming from the invasion of bladder cancer or prostate cancer into the wall of the bladder or your urethra. Have your nursing staff or your doctor at [facility] arrange for you to get cystoscopy / a urologist appointment. Follow-up with your doctor in a week Your urine today was full of red blood cells and one enzyme test was positive ( see below) Follow up with your doctor/care provider within a week at [facility] will need to fill his Septra DS prescription 1 tablet twice a day for 3 days. Your urine wasn't clinically suggestive of urinary tract infection but you had one enzyme that was positive. So the Septra DS might be over treatment
== END 2018-08-26 21:38 | disposition home or self-care (01) ==
LOC: FB.ED 18:26
DX: N30.41 Irradiation cystitis with hematuria (principal); C67.9 Malignant neoplasm of bladder, unspecified; C61 Malignant neoplasm of prostate; N39.45 Continuous leakage; Z87.891 Personal history of nicotine dependence; I25.10 Atherosclerotic heart disease of native coronary artery without angina pectoris; I48.91 Unspecified atrial fibrillation; E03.9 Hypothyroidism, unspecified
CPT/HCPCS: 36415; 81001; 85025; 85610; 85730; 99283; A9270